=== PATIENT | female | born 1985 | race Caucasian/White ===

== ENCOUNTER 2016-07-07 10:21 | Emergency (ER) | payer BC ==
--- NOTE | 2016-07-07 10:57 | UC ---
Complaint Female HPI - HPI Summary HPI Summary: burning on urination x 5 days + right lower back , no fever, no chills, + right kidney pain - History Of Current Complaint Chief Complaint: UCGU Stated Complaint: URINARY/RIGHT SIDE PAIN Time Seen by Provider: 07/07/16 10:51 Hx Obtained From: Patient Hx Last Menstrual Period: had son 02/28/15, been irregular since, IUD as well Onset/Duration: Gradual Onset, Lasting Days - 5, Still Present Timing: Constant Severity Initially: Moderate Severity Currently: Moderate Character: Burning Aggravating Factor(s): Urination Alleviating Factor(s): Nothing Associated Signs And Symptoms: Positive: Back Pain. Negative: Fever, Vaginal Bleeding/Discharge, Vaginal Discharge, Genital Swelling, Genital Blisters, Retained Foregin Body (Specify) - Allergies/Home Medications Allergies/Adverse Reactions: Allergies Allergy/AdvReac Type Severity Reaction Status Date / Time No Known Allergies Allergy Verified 07/07/16 10:41 Home Medications: Home Medications ALPRAZolam TAB* [Xanax TAB*] 2 mg PO TID PRN 07/07/16 [History Confirmed ] Fluticasone NASAL * [Flonase *] 1 spray NASAL DAILY 07/07/16 [History Confirmed 07/07/16] traMADol TAB* [Ultram*] 50 mg PO Q6HR PRN 07/07/16 [History Confirmed 07/07/16] PMH/Surg Hx/FS Hx/Imm Hx Respiratory History Of: Reports: Asthma - Surgical History Surgical History: Yes Surgery Procedure, Year, and Place: ureter stents. - Family History Known Family History: Positive: None Negative: Diabetes - Social History Alcohol Use: None Substance Use Type: None Smoking Status (MU): Current Some Day Smoker Type: Cigarettes Amount Used/How Often: 5 per day Review of Systems Constitutional: Negative Skin: Negative Eyes: Negative ENT: Negative Respiratory: Negative Genitourinary: Dysuria, Frequency, Urgency All Other Systems Reviewed And Are Negative: Yes Physical Exam Triage Information Reviewed: Yes Appearance: Well-Appearing, No Pain Distress, Well-Nourished Vital Signs: Initial Vital Signs Temp 98.4 F 07/07/16 10:34 Pulse 76 07/07/16 10:34 Resp 15 07/07/16 10:34 Pulse Ox 99 04/25/17 10:34 Vital Signs Reviewed: Yes Eyes: Positive: Conjunctiva Clear ENT: Positive: Normal ENT inspection, Hearing grossly normal, Pharynx normal Neck: Positive: Supple, Nontender, No Lymphadenopathy Respiratory: Positive: Chest non-tender, Lungs clear, Normal breath sounds Cardiovascular: Positive: RRR, No Murmur, Pulses Normal Abdominal Exam: Normal Abdomen Description: Positive: Nontender, Soft, CVA Tenderness (R). Negative: CVA Tenderness (L) Bowel Sounds: Positive: Present Skin Exam: Normal Complaint Female Dx - Differential Dx/Diagnosis Provider Diagnoses: UTI Discharge - Discharge Plan Condition: Stable Disposition: HOME Prescriptions: Sulfamethox/Trimethoprim DS* [Bactrim DS 800/160 TAB*] 1 tab PO BID #14 tab Patient Education Materials: Urinary Tract Infection in Women (ED) Referrals: May Dan MD [Primary Care Provider] - If Needed
== END 2016-07-07 11:11 | disposition home or self-care (01) ==
LOC: UCCORT 10:21
DX: N39.0 Urinary tract infection, site not specified (principal); J45.909 Unspecified asthma, uncomplicated; Z72.0 Tobacco use
CPT/HCPCS: 87086; 99212; G0463

== ENCOUNTER 2018-02-17 07:57 | Emergency (ER) | payer BC ==
--- OUTSIDE RECORDS SUMMARY | 2018-02-17 08:07 | XMS REPORT | Continuity of Care Document ---
:1985 External Reference #:[id number] Author Name Macrina Young Care Team Providers Name Role Phone May Dan MD Primary Care Physician Unavailable Payers Type Date Identification Numbers Payment Provider Subscriber Effective: Policy Number: [id number] [employer] Abigail Maravilla 2017 PayID: [id number] [address] [address] ALEJANDRINA Shelley [address] Expires: 2017 Policy Number: [id number] [employer] Abigail Maravilla Group Number: 17 [address] [address] PayID: [id number] ALEJANDRINA Shelley [id number] Advance Directives Description No Information Available Problems Date Description Provider Status Onset: 12/16/2010 Extrinsic asthma without status May Dan M.D. Active asthmaticus Onset: 12/16/2010 Headache May Dan M.D. Active Onset: 12/16/2010 Urinary tract infectious disease May Dan M.D. Active Onset: 12/16/2010 Ex-smoker May Dan M.D. Active Family History Date Family Member(s) Problem(s) Comments General Non Contributory General Kidney Stones General Anxiety Father Hyperlipidemia Father Hypertension Social History Type Date Description Comments Sex Unknown Marital Status single Tobacco Use Start: Unknown Current Cigarette Smoker ETOH Use Occasionally consumes alcohol Tobacco Use Start: Unknown Patient is a current smoker, smokes every day Smoking Status Reviewed: 10/20/17 Patient is a current smoker, smokes every day Seat Belt/Car Seat Always uses a seat belt Allergies, Adverse Reactions, Alerts Date Description Reaction Status Severity Comments 12/01/2010 NKDA Active 03/02/2005 Nka Active 02/16/2006 enviromental Active Medications Medication Date Status Form Strength Qnty SIG Indications Ordering Provider Xanax 02/07/ Active Tablets 1mg 240ta 2 by mouth F41.1 May Maria bs every 6 Gauss, hours as M.D. needed Tramadol HCL 08/26/ Active Tablets 50mg 240ta 2 by mouth F41.1 May 2016 bs every 6 Gauss, hours as M.D. needed pain Ventolin HFA 06/10/ Active Aerosol 108(90Bas 108un inhale two May 2011 e) its puffs by Ni, mcg/Act mouth four M.D. times a day and as needed Albuterol 05/17/ Active Solution 0.083% 100un qid prn as May Inhalation Unit 2006 its Directed Larryuss, Dose M.D. Clonidine HCL / Active Tablets 0.1mg TK 1 T PO Unknown 0000 qid PRF Anxiety Amoxicillin 12/23/ Hx Tablets 875mg 14tab 1 by mouth J20.9 May 2018 - s twice a day Ni, 02/07/ M.D. 2018 Cheratussin ac 12/23/ Hx Syrup 100-10mg/ 118ml 5 ml every J20.9 May 2018 - 5ML 4 hours as Ni, 02/07/ needed M.D. 2018 Azithromycin 12/13/ Hx Tablets 250mg 6tabs 2 by mouth J20.9 May 2018 - today, 1 by Ni, 12/23/ mouth day 2 M.D. 2017 thru 5 Xanax 12/13/ Hx Tablets 1mg 120ta 1 by mouth F41.1 May 2018 - bs 4x daily as Ni, 02/07/ needed for M.D. 2018 anxiety Work Note 07/07/ Hx may return F43.23 May 2018 - to work Ni, 12/13/ 10/06/2017 M.D. 2018 Alprazolam XR 06/22/ Hx Tablets ER 2mg 120ta 2 tab by F41.1 May 2018 - 24HR bs mouth twice Ni, 09/28/ daily M.D. 2018 Venlafaxine HCL 04/28/ Hx Tablets ER 75mg 30tab 1 by mouth F41.1 May ER 2018 - 24HR s every day Ni, 06/22/ M.D. 2018 Oseltamivir 02/24/ Hx Capsules 75mg 20cap 1 by mouth J09.x2 May Phosphate 2017 - s twice daily Ni, 07/22/ for next 10 M.D. 2018 days Azithromycin 02/24/ Hx Tablets 250mg 6tabs 2 by mouth J09.x2 May 2017 - today, 1 by Gauss, 03/29/ mouth day 2 M.D. 2017 thru 5 Work Note 02/24/ Hx Excused J09.x2 May 2016 - from work Gauss, 07/07/ until 03/01 M.D. 2018 Cipro 02/02/ Hx Tablets 250mg 14tab 1 by mouth N39.0 May 2016 - s twice a day Gauss, 02/24/ M.D. 2016 Alprazolam XR 01/05/ Hx Tablets ER 2mg 60tab 2 tab by F41.1 May 2017 - 24HR s mouth daily Gauss, 06/22/ M.D. 2017 Alprazolam 12/09/ Hx Tablets 2mg 120ta 1 by mouth F41.1 May 2017 - Dispers bs 4 times Gauss, 12/09/ daily M.D. 2016 Alprazolam 12/09/ Hx Tablets 1mg 300ta 2 /2 by F41.1 May 2016 - bs mouth 4 Gauss, 09/28/ times a day M.D. 2017 Alprazolam XR 12/08/ Hx Tablets ER 2mg 120ta 1 tab by F41.1 May 2016 - 24HR bs mouth four Gauss, 12/09/ times a day M.D. 2017 as needed Ketoconazole 08/26/ Hx Cream 2% 60gm apply twice B35.9 May 2016 - a day Gauss, 11/10/ M.D. 2016 Alprazolam XR 01/06/ Hx Tablets ER 2mg 1 tablet F41.1 May 2016 - 24HR every 8 Gauss, 01/06/ hours as M.D. 2016 needed Alprazolam 10/25/ Hx Tablets 1mg 180ta 2 by mouth F41.1 May 2015 - Dispers bs three times Gauss, 01/06/ a day M.D. 2015 Alprazolam 10/25/ Hx Tablets 1mg 180ta 2 by mouth F41.1 May 2016 - bs three times Gauss, 12/08/ a day M.D. 2017 Cipro 11/11/ Hx Tablets 250mg 10tab 1 by mouth N39.0 May 2015 - s twice a day Gauss, 01/06/ M.D. 2016 Azithromycin 09/11/ Hx Tablets 250mg 6tabs 2 by mouth J01.90 May 2015, 1 by Ni, 11/11/ mouth day 2 M.D. 2016 thru 5 Tramadol HCL 04/24/ Hx Tablets 50mg 120ta 1 by mouth F41.1 May 2015 - bs every 6 Larryuss, 08/26/ hours as M.D. 2017 needed pain Alprazolam 09/24/ Hx Tablets 1mg 120ta 1 by mouth F41.1 May 2014 - bs 4 times Larryuss, 01/06/ daily as M.D. 2016 needed Alprazolam 09/06/ Hx Tablets 0.5mg 30tab 1 by mouth 300.02 May 2014 - s before Ni, 09/24/ bedtime as M.D. 2014 neded Alprazolam 04/03/ Hx Tablets 1mg 120ta 1 by mouth 300.02 May 2014 - bs 4 times a Larryuss, 09/06/ day M.D. 2014 Pyridium 02/21/ Hx Tablets 200mg 30tab 1 three 599.00 May 2013 - s times a day Ni, 09/06/ as needed M.D. 2014 bladder pain Azithromycin 12/06/ Hx Tablets 250mg 6tabs 2 by mouth 466.0 May 2013, 1 by Ni, 09/06/ mouth day 2 M.D. 2014 thru 5 Azithromycin 08/17/ Hx Tablets 250mg 6tabs 2 po today, 460.00 May 2013 - po day 2 Ni, 10/17/ thru 5 M.D. 2013 Famotidine 08/14/ Hx Tablets 40mg 90tab 1 po qd 530.81 May 2013 - s Ni, 11/10/ M.D. 2016 Buspirone HCL 07/13/ Hx Tablets 15mg 180ta 1 po bid F41.1 May 2013 - bs Ni, 11/10/ M.D. 2017 Ciprofloxacin 04/13/ Hx Tablets 500mg 20tab 1 by mouth 382.90 May HCL 2013 - s twice a day Ni, 09/06/ M.D. 2014 Cortisporin-TC 04/13/ Hx Suspension 3.3-3-10- 5ml 1 qtt ad 382.90 May 2013 - 0.5mg/ml qid Ni, M.D. 2013 Buspirone HCL 04/13/ Hx Tablets 7.5mg 90tab 1 po tid 300.02 May 2013 - s Ni, M.D. 2013 Amoxicillin/Cla 03/28/ Hx Tablets 500-125mg 14tab 1 po bid 382.90 May vulanate 2013 - s Ni, Potassium M.D. 2013 Diflucan 03/28/ Hx Tablets 150mg 3tabs 1 po qd 382.90 May 2013 - Ni, M.D. 2013 Alprazolam 03/01/ Hx Tablets 1mg 120ta 1 by mouth 300.02 May 2012 - bs 4 times a Ni, 04/03/ day M.D. 2014 SMZ-TMP DS 02/07/ Hx Tablets 800-160mg 14tab 1 po bid 599.0 May 2012 - s Ni, M.D. 2012 Azithromycin 12/07/ Hx Tablets 250mg 6tabs 2 po today, 466.0 May 2012 po day 2 Ni, 01/09/ thru 5 M.D. 2012 Advair Diskus 12/07/ Hx Aerosol 250-50mcg 3unit 1 puff bid 493.00 May 2012 - /Dose s Ni, M.D. 2017 Robitussin With 12/07/ Hx 4Oz 1 tsp po q 466.0 May Codeine 2012 - 4 hours prn Ni, 01/09/ cough M.D. 2012 Alprazolam 10/25/ Hx Tablets 0.5mg 90tab 1 po tid 300.02 May 2012 - s prn Larryuss, M.D. 2012 Azithromycin 08/22/ Hx Tablets 250mg 6tabs 2 po today, 382.90 May 2012 po day 2 Gauss, 10/05/ thru 5 M.D. 2012 Azithromycin 02/22/ Hx Tablets 250mg 6tabs 2 po today, 465.2011 po day 2 Gauss, 05/16/ thru 5 M.D. 2013 Robitussin With 02/22/ Hx Liquid 8Oz 1-2 465.8 May Codeine 2011 - teaspoon po Gauss, 05/16/ q 4-6 hrs M.D. 2012 for cough Work Note 02/22/ Hx may return 465.2011 - to work Gauss, 05/16/ 02/29/2012 M.D. 2012 Ciprofloxacin 12/07/ Hx Tablets 500mg 14tab 1 po bid 599.0 May HCL 2011 - s Gauss, M.D. 2011 Ciprofloxacin 04/13/ Hx Tablets 250mg 14tab 1 po bid 599.0 May HCL 2011 - Gauss, 12/07/ M.D. 2011 Alprazolam 01/27/ Hx Tablets 0.25mg 90tab 1 po tid 300.02 May 2010 - prn Gauss, M.D. 2012 Pyridium 12/16/ Hx Tablets 200mg 30tab 1 tid prn 599.0 May 2010 - bladder Gauss, 01/27/ pain M.D. 2010 Ciprofloxacin 12/16/ Hx Tablets 250mg 30tab 1 po bid 599.0 May HCL 2010 - Gauss, 01/27/ M.D. 2010 Proair HFA 07/14/ Hx Aerosol 108(90Bas 3unit 2 puffs 4 May 2010 - e) mcg/ac s x daily Gauss, M.D. 2011 Chantix 11/20/ Hx Tablets 0.5mg 60tab 1 po bid V15.82 May 2009 - s Gauss, M.D. 2010 Betamethasone 11/20/ Hx Cream 0.05% 60rm apply to 705.81 May Dipropionate 2009 - affected Gauss, 01/09/ area bid M.D. 2012 Tramadol HCL 08/05/ Hx Tablets 50mg 120ta 1 by mouth 346.00 May 2009 - bs every 6 Gauss, 09/06/ hours as M.D. 2014 needed pain Azithromycin 05/21/ Hx Tablets 250mg 5tabs 2 po today, 473.90 May 2009 - po day 2 Gauss, 11/20/ thru 5 M.D. 2009 Proair HFA 05/21/ Hx Aerosol 108(90Bas 1unit 2 puffs 4 473.90 May 2009 - e) mcg/ac s x daily Gauss, 11/20/ M.D. 2009 Tramadol HCL 05/21/ Hx Tablets 50mg 100ta 1 po q 6 784.0 May 2009 - bs hours prn Ni, 11/20/ pain M.D. 2010 Ventolin HFA 07/23/ Hx Aerosol 108mcg/Ac 2unit 2 puff qid 473.90 May 2009 - t s prn Ni, 05/21/ M.D. 2009 Proventil HFA 07/04/ Hx Aerosol 108mcg/Ac 3unit 2 puffs qid May 2009 - t s prn Ni, 07/23/ M.D. 2008 Zithromax Z-Khoa 01/19/ Hx Tablets 250mg 1Pak 1 po qd Vandana 2008 - MD Asa 2007 Zithromax 01/19/ Hx Tablets 250mg 6tabs 2 po day 1, Vandana 2007 - po qd x MD Asa 05/21/ days 2-5 2009 Metrogel-Vagina 11/22/ Hx Gel 0.75% 60GMS 1 May wayne 2008 - Applicator Ni, 01/19/ Full Per M.D. 2007 Vagina At hs Diflucan 09/28/ Hx Tablets 150mg 7tabs 1 PO qd 112.9 May 2008 - Ni, 11/14/ M.D. 2008 Diflucan 09/26/ Hx Tablets 100mg 7tabs 1 qd x 7 112.9 May 2007 - days Ni, 09/28/ M.D. 2007 Chantix 03/22/ Hx 2unit PO as V15.82 May Starter Pack 2008 - s Directed Ni, 09/26/ M.D. 2007 Zithromax 06/16/ Hx Tablets 500mg 5tabs 1 po qd 473.90 May 2006 - for five Ni, 03/22/ days M.D. 2008 Loratadine 06/16/ Hx Tablets 10mg 30tab 1 PO qd prn 473.90 May 2007 - s Ni, 05/21/ M.D. 2010 Mucinex 06/16/ Hx Tablets 600mg 30tab 1 po bid 473.90 May 2007 - s prn Ni, 03/22/ M.D. 2008 Flonase NS 06/16/ Hx 3unit 1 spray q May 2007 - s nare q day Ni, M.D. 2008 Nuvaring 05/11/ Hx Insert 0.015mg/D 4unit 1 q week V25.02 May 2006 - ay;0.12mg s Ni, 05/21/ /D M.D. 2009 Albuterol 02/16/ Hx Aerosol 90mcg/Dos 6unit 2 puff qid May Inhalation 2005 - e s Ni, M.D. 2008 Elocon 02/16/ Hx Cream 0.1% 15uni Apply To 705.81 May 2005 - ts Skin as Ni, M.D. 2009 Lamisil 02/16/ Hx Tablets 250mg 30tab 1 po qday 110.1 May 2005 - s Ni, M.D. 2009 Advair Disc 02/16/ Hx Inhaler 250/50 1unit 1 puff bid 493.00 May 2005 - s Ni, M.D. 2012 Levaquin 03/02/ Hx Tablets 500mg 3tabs 599.0 May 2004 - Ni, M.D. 2006 Ibuprofen 03/02/ Hx Tablets 600mg 120ta 1 PO bid 599.0 May 2004 - bs prn Ni, M.D. 2009 Ortho-Evra 01/22/ Hx Patches 0.75mg;6m 12uni apply once May 2004 - g;20mcg;1 ts A week Ni, M.D. 2006 Albuterol 01/22/ Hx Aerosol 90mcg/Dos 2unit 2 puff qid May Inhalation 2004 - e s and prn Ni, M.D. 2010 Ortho 01/19/ Hx Tablets 0.035mg;0 28tab One PO qd May Tri-Cyclen 2004 - .18mg;0.0 s Ni, M.DBahman 2004 Bupropion HCL / Hx Tablets ER 150mg TK 1 T PO Unknown ER (XL) 0000 - 24HR qam 201709/28/2017 Escitalopram / Hx Tablets 20mg Unknown Oxalate 0000 - 2017 Diazepam / Hx Tablets 10mg Unknown 0000 - 2017 Quetiapine / Hx Tablets ER 150mg one tablet Unknown Fumarate ER 0000 - 24HR one time a 2017 Immunizations CPT Code Status Date Vaccine Lot # [id number] Given 10/16/2004 Tetanus And Diptheria Toxiods [id number] Given 10/16/2004 Tetanus And Diptheria Toxiods Vital Signs Date Vital Result Comment 02/07/2018 3:36pm BP Systolic 138 mmHg BP Diastolic 78 mmHg Heart Rate 80 /min Height 61 inches 5'1" Weight 125.00 lb BMI (Body Mass Index) 23.6 kg/m2 O2 % BldC Oximetry 98 % 01/12/2018 2:42pm BP Systolic 140 mmHg BP Diastolic 70 mmHg Height 61 inches 5'1" 12/23/2017 3:39pm BP Systolic 120 mmHg BP Diastolic 74 mmHg Height 61 inches 5'1" Weight 122.00 lb BMI (Body Mass Index) 23.0 kg/m2 12/13/2017 3:36pm BP Systolic 110 mmHg BP Diastolic 70 mmHg Heart Rate 100 /min Body Temperature 98.2 F Respiratory Rate 18 /min Height 61 inches 5'1" Weight 122.00 lb BMI (Body Mass Index) 23.0 kg/m2 O2 % BldC Oximetry 98 % 10/20/2017 1:55pm BP Systolic 98 mmHg BP Diastolic 56 mmHg Height 61 inches 5'1" Weight 114.00 lb BMI (Body Mass Index) 21.5 kg/m2 09/28/2017 3:12pm BP Systolic 110 mmHg BP Diastolic 70 mmHg Heart Rate 70 /min Respiratory Rate 18 /min Height 61 inches 5'1" Weight 121.00 lb BMI (Body Mass Index) 22.9 kg/m2 O2 % BldC Oximetry 95 % 07/22/2017 2:54pm BP Systolic 120 mmHg BP Diastolic 64 mmHg Height 61 inches 5'1" Weight 121.00 lb BMI (Body Mass Index) 22.9 kg/m2 07/20/2017 1:42pm BP Systolic 130 mmHg BP Diastolic 68 mmHg Heart Rate 80 /min Respiratory Rate 18 /min Height 61 inches 5'1" Weight 121.00 lb BMI (Body Mass Index) 22.9 kg/m2 O2 % BldC Oximetry 97 % 07/07/2017 11:37am BP Systolic 118 mmHg BP Diastolic 66 mmHg Height 61 inches 5'1" Weight 121.00 lb BMI (Body Mass Index) 22.9 kg/m2 06/22/2017 3:50pm BP Systolic 140 mmHg BP Diastolic 90 mmHg Heart Rate 72 /min Respiratory Rate 18 /min O2 % BldC Oximetry 96 % 04/28/2017 11:33am BP Systolic 108 mmHg BP Diastolic 72 mmHg Height 61 inches 5'1" Weight 121.00 lb BMI (Body Mass Index) 22.9 kg/m2 03/29/2017 2:26pm BP Systolic 118 mmHg BP Diastolic 70 mmHg 02/24/2017 2:46pm BP Systolic 110 mmHg BP Diastolic 60 mmHg Heart Rate 105 /min Body Temperature 98.3 F Respiratory Rate 18 /min 02/02/2017 2:54pm BP Systolic 104 mmHg BP Diastolic 60 mmHg Body Temperature 95.6 F 01/05/2017 11:54am BP Systolic 116 mmHg BP Diastolic 70 mmHg 12/08/2016 3:05pm BP Systolic 124 mmHg BP Diastolic 60 mmHg 11/10/2016 11:31am BP Systolic 124 mmHg BP Diastolic 70 mmHg 10/13/2016 3:27pm BP Systolic 112 mmHg BP Diastolic 70 mmHg 09/22/2016 2:18pm BP Systolic 120 mmHg BP Diastolic 66 mmHg 08/26/2016 3:40pm BP Systolic 118 mmHg BP Diastolic 70 mmHg 07/22/2016 11:54am BP Systolic 122 mmHg BP Diastolic 80 mmHg 05/25/2016 2:24pm BP Systolic 122 mmHg BP Diastolic 70 mmHg 04/28/2016 1:44pm BP Systolic 120 mmHg BP Diastolic 80 mmHg Weight 125.00 lb 04/01/2016 3:32pm BP Systolic 118 mmHg BP Diastolic 78 mmHg 03/03/2016 1:35pm BP Systolic 110 mmHg BP Diastolic 70 mmHg 01/07/2016 1:59pm BP Systolic 122 mmHg BP Diastolic 70 mmHg 12/10/2015 3:34pm BP Systolic 120 mmHg BP Diastolic 80 mmHg 11/12/2015 2:28pm BP Systolic 114 mmHg BP Diastolic 60 mmHg 10/16/2015 2:58pm BP Systolic 110 mmHg BP Diastolic 62 mmHg 09/12/2015 3:15pm BP Systolic 110 mmHg BP Diastolic 60 mmHg Body Temperature 97.7 F 07/09/2015 2:05pm BP Systolic 118 mmHg BP Diastolic 70 mmHg 02/11/2015 2:37pm BP Systolic 114 mmHg BP Diastolic 70 mmHg 01/09/2015 11:28am BP Systolic 112 mmHg BP Diastolic 62 mmHg 12/11/2014 10:52am BP Systolic 122 mmHg BP Diastolic 80 mmHg 10/17/2014 11:34am BP Systolic 120 mmHg BP Diastolic 80 mmHg 09/24/2014 1:37pm BP Systolic 108 mmHg BP Diastolic 60 mmHg 09/06/2014 12:36pm BP Systolic 124 mmHg BP Diastolic 60 mmHg 06/28/2014 10:05am BP Systolic 112 mmHg BP Diastolic 60 mmHg 05/30/2014 1:41pm BP Systolic 132 mmHg BP Diastolic 80 mmHg 05/09/2014 10:54am BP Systolic 104 mmHg BP Diastolic 60 mmHg Body Temperature 98.5 F 04/03/2014 3:06pm BP Systolic 118 mmHg BP Diastolic 68 mmHg 03/05/2014 3:03pm BP Systolic 122 mmHg BP Diastolic 70 mmHg 02/05/2014 2:20pm BP Systolic 118 mmHg BP Diastolic 70 mmHg 01/04/2014 1:21pm BP Systolic 120 mmHg BP Diastolic 72 mmHg 12/06/2013 1:50pm BP Systolic 110 mmHg BP Diastolic 60 mmHg Body Temperature 98.2 F 10/17/2013 3:37pm BP Systolic 102 mmHg BP Diastolic 60 mmHg 10/13/2013 11:56am BP Systolic 110 mmHg BP Diastolic 60 mmHg 09/11/2013 3:35pm BP Systolic 112 mmHg BP Diastolic 60 mmHg 08/17/2013 3:06pm BP Systolic 112 mmHg BP Diastolic 70 mmHg Body Temperature 98.0 F 08/14/2013 3:39pm BP Systolic 122 mmHg BP Diastolic 70 mmHg 07/13/2013 3:44pm BP Systolic 114 mmHg BP Diastolic 70 mmHg 07/06/2013 1:50pm BP Systolic 112 mmHg BP Diastolic 70 mmHg 06/05/2013 1:48pm BP Systolic 120 mmHg BP Diastolic 76 mmHg 04/13/2013 11:51am BP Systolic 122 mmHg BP Diastolic 78 mmHg Body Temperature 98.7 F 03/28/2013 12:11pm BP Systolic 114 mmHg BP Diastolic 68 mmHg Body Temperature 99.0 F 03/01/2013 11:04am BP Systolic 132 mmHg BP Diastolic 80 mmHg 02/07/2013 11:41am BP Systolic 112 mmHg BP Diastolic 74 mmHg Body Temperature 97.8 F 01/10/2013 10:50am BP Systolic 114 mmHg BP Diastolic 70 mmHg 12/07/2012 1:36pm BP Systolic 108 mmHg BP Diastolic 66 mmHg Body Temperature 98.4 F 10/25/2012 1:53pm BP Systolic 128 mmHg BP Diastolic 62 mmHg 10/05/2012 1:29pm BP Systolic 130 mmHg BP Diastolic 62 mmHg 08/22/2012 3:37pm BP Systolic 100 mmHg BP Diastolic 60 mmHg Body Temperature 98.4 F 05/16/2012 2:11pm BP Systolic 120 mmHg BP Diastolic 80 mmHg Height 61 inches 5'1" Weight 114.00 lb BMI (Body Mass Index) 21.5 kg/m2 02/23/2012 2:10pm Body Temperature 100.9 F Height 61 inches 5'1" 12/08/2011 2:38pm BP Systolic 130 mmHg BP Diastolic 72 mmHg Height 61 inches 5'1" Weight 117.00 lb BMI (Body Mass Index) 22.1 kg/m2 10/20/2011 3:20pm BP Systolic 150 mmHg BP Diastolic 70 mmHg 04/13/2011 11:01am BP Systolic 104 mmHg BP Diastolic 60 mmHg Body Temperature 97.6 F 01/27/2011 2:59pm BP Systolic 120 mmHg BP Diastolic 68 mmHg 12/16/2010 1:37pm BP Systolic 120 mmHg BP Diastolic 68 mmHg Height 61 inches 5'1" Weight 109.00 lb BMI (Body Mass Index) 20.6 kg/m2 11/20/2009 1:46pm BP Systolic 110 mmHg BP Diastolic 50 mmHg Weight 107.00 lb 05/21/2009 2:51pm BP Systolic 116 mmHg BP Diastolic 62 mmHg Body Temperature 99.5 F Weight 109.00 lb 01/20/2008 12:07pm BP Systolic 112 mmHg BP Diastolic 60 mmHg Height 61 inches 5'1" Weight 120.00 lb BMI (Body Mass Index) 22.7 kg/m2 11/15/2007 4:06pm BP Systolic 126 mmHg BP Diastolic 64 mmHg Height 61 inches 5'1" Weight 118.00 lb BMI (Body Mass Index) 22.3 kg/m2 09/27/2007 1:56pm BP Systolic 118 mmHg BP Diastolic 68 mmHg Height 61 inches 5'1" 03/22/2007 10:48am BP Systolic 122 mmHg BP Diastolic 60 mmHg Height 61 inches 5'1" Weight 121.00 lb BMI (Body Mass Index) 22.9 kg/m2 06/16/2006 11:31am Heart Rate 77 /min Body Temperature 98.1 F Height 61 inches 5'1" Weight 114.00 lb BMI (Body Mass Index) 21.5 kg/m2 O2 % BldC Oximetry 99 % 05/11/2006 11:28am Height 61 inches 5'1" 05/11/2006 10:59am BP Systolic 116 mmHg BP Diastolic 60 mmHg Height 61 inches 5'1" Weight 112.00 lb BMI (Body Mass Index) 21.2 kg/m2 02/16/2006 3:43pm Heart Rate 86 /min Body Temperature 98.6 F Weight 119.00 lb O2 % BldC Oximetry 98 % 03/02/2005 2:55pm BP Systolic 100 mmHg BP Diastolic 60 mmHg Body Temperature 98.1 F Results Test Date Facility Test Result H/L Range Note Escherichia Coli 07/05/2017 [facility] Nitrofurantoin <=[address] [place] [address] [phone] Trimethoprim/Sulfamethoxazole <=20 Ampicillin 8 Cefazolin <=4 Ampicillin/Sulbactam <=2 Ciprofloxacin <=0.25 Piperacillin/Tazobactam <=4 Ceftazidime <=1 Ceftriaxone <=1 Cefepime <=1 Levofloxacin <=0.12 Imipenem <=0.25 Gentamicin <=1 Tobramycin <=1 Urine Culture 07/05/2017 [facility] Urine Culture ESCHERICHIA COLI [address] [place] [address] [phone] Quantity > 100,000 CFU/mL 3 Urine Culture URETHRAL BRANDON Quantity 10,000 - 50,000 <SEE NOTE> 4 Culture If 07/05/2017 [facility] Culture If CULTURE TO 5 Indicated Comment [address] Indicated FOLLO <[place] [address] Comment NOTE> [phone] Source: URINE, CLEAN CAT <SEE NOTE> 6 Comprehensive 07/05/2017 [facility] Glucose 103 mg/ dL 74-106 Metabolic Panel [address] [place] [address] [phone] BUN 16 mg/dL 7-18 Creatinine 0.7 mg/dL 0.6-1.3 Glom Filtration Rate, Estimate >60 mL/min >60 If >60 mL/min >60 7 BUN/Creat 22.8 ratio Sodium 141 mmol/L 136-145 Potassium 3.8 mmol/L 3.5-5.1 Chloride 107 mmol/L 98-107 Carbon Dioxide 22 mmol/L 21-32 Anion Gap 12 mEq/L 8-16 Calcium 9.1 mg/dL 8.5-10.1 Total Protein 8.1 g/dL 6.4-8.2 Albumin 4.4 g/dL 3.4-5.0 Globulin 3.7 g/dL 1.9-4.3 Alb/Glob 1.2 ratio Bilirubin,Total 0.8 mg/dL 0.2-1.0 Sgot/Ast 18 U/L 15-37 SGPT/Alt 37 U/L 12-78 Alkaline Phosphatase 54 U/L 45-117 Laboratory test 07/05/2017 [facility] Thyroid Stim 0.65 uIU/mL 0.30-4.[address] [place] [address] [phone] CBS W/Automated 07/05/2017 [facility] White Blood 11.2 K/uL High 3.1-10.[address] [place] [address] [phone] Red Blood Count 4.70 M/uL 3.90-5.40 Hemoglobin 14.9 gm/dL 11.6-15.8 Hematocrit 43.0 % 36.0-46.1 Mean Cell Volume 91.5 fl 80.9-99.0 Mean Corpuscular HGB 31.7 pg 25.9-32.7 Mean Corpuscular HGB Conc 34.7 g/dL High 30.8-34.3 Platelet Count 406 K/uL High 155-360 Red Cell Distri Width SD 41.2 fl 3-47 Red Cell Distri Width %CV 12.5 % 11.7-14.4 Mean Platelet Volume 9.4 fL 8.9-12.4 Neut% 73.5 % High 40.4-72.8 Lymph % 19.9 % Low 20.0-42.0 [place] % 5.6 % 4.3-13.2 Eo% 0.8 % 0.0-6.6 Bas% 0.2 % 0.0-1.1 Neut# 8.21 K/uL High 1.8-7.0 Lymph # 2.22 K/uL 1.0-4.0 [place] # 0.62 K/uL 0.3-0.9 Eos # 0.09 K/uL 0.0-0.5 Baso # 0.02 K/uL 0.0-0.1 Urinalysis With 07/05/2017 [facility] Urine Color YELLOW Yellow Microscopic [address] [place], [place] [id number] [phone] Urine Clarity CLOUDY Clear Urine Glucose - Dipstick NEGATIVE mg/dL Negative Urine Bilirubin - Dipstick NEGATIVE Negative Urine Ketone TRACE mg/dL High Negative Urine Specific [place] 1.025 1.010-1.030 Urine Blood LARGE Negative Urine PH 6.0 Low 6.5-7.5 Urine Protein - Dipstick 100 mg/dL High Negative Urine Urobilinogen - Dipstick 0.2 E.U./dL 0.2-1.0 Urine Nitrite - Dipstick POSITIVE Negative Urine Leuk Esterase MODERATE Negative Urine RBC 2-5 rbc/hpf 0-2 Urine WBC TNTC wbc/hpf High 0-7 Urine Epithelial Cells VERY FEW /lpf None Seen Urine Bacteria MANY None Seen Source: URINE, CLEAN CAT <SEE NOTE> 8 Urine HCG 07/05/2017 [facility] Urine HCG NEGATIVE Negative 9 (Qualitative) [address] (Qualitative) [place], [place] [id number] [phone] Source: URINE, CLEAN CAT <SEE NOTE> 10 Differential-WBC 07/05/2017 [facility] Total Cells 100 #CELLS Confirm [address] Counted [place], [place] [id number] [phone] Neutrophils% 76 % High 33-73 Lymph% 13 % Low 20-42 Atypical Lymph% 5 % 0-7 Monocyte% 6 % 0-10 Platelet Estimate SLIGHT INCREASE RBC Morphology NORMAL Slide Review 07/05/2017 [facility] Slide Review DIFF ORDERED [address] [place] [address] [phone] Culture,Urine,V 02/02/2017 [facility] URINE-CLEAN CATC [address] <SEE NOTE> [place] [address] [phone] Final Report SEE NOTE 12 CBC 07/10/2016 [facility] White Blood Count 5.6 K/uL 3.1-10.[address] [place] [address] [phone] Red Blood Count 3.03 M/uL Low 3.90-5.40 Hemoglobin 9.6 gm/dL Low 11.6-15.8 Hematocrit 28.8 % Low 36.0-46.1 Mean Cell Volume 95.0 fl 80.9-99.0 Mean Corpuscular HGB 31.7 pg 25.9-32.7 Mean Corpuscular HGB Conc 33.3 g/dL 30.8-34.3 Platelet Count 239 K/uL 150-400 Red Cell Distri Width %CV 12.3 % 11.7-14.4 Mean Platelet Volume 10.2 fL 8.9-12.4 Comprehensive 07/10/2016 [facility] Glucose 135 mg/ dL High 74-106 Metabolic Panel [address] [place] [address] [phone] BUN 4 mg/dL Low 7-18 Creatinine 0.5 mg/dL Low 0.6-1.3 Glom Filtration Rate, Estimate >60 mL/min >60 If >60 mL/min >60 14 BUN/Creat 8.0 ratio Sodium 144 mmol/L 136-145 Potassium 3.5 mmol/L 3.5-5.1 Chloride 113 mmol/L High 98-107 Carbon Dioxide 25 mmol/L 21-32 Anion Gap 6 mEq/L Low 8-16 Calcium 7.2 mg/dL Low 8.5-10.1 Total Protein 5.2 g/dL Low 6.4-8.2 Albumin 2.5 g/dL Low 3.4-5.0 Globulin 2.7 g/dL 1.9-4.3 Alb/Glob 0.9 ratio Bilirubin,Total 0.2 mg/dL 0.2-1.0 Sgot/Ast 39 U/L High 15-37 SGPT/Alt 66 U/L 12-78 Alkaline Phosphatase 67 U/L 45-117 Laboratory test 07/10/2016 [facility] Magnesium 2.4 mg/dL 1.8-2.[address] [place] [address] [phone] CBS W/Automated 07/09/2016 [facility] White Blood 6.8 K/uL 3.1-10.[address] [place] [address] [phone] Red Blood Count 3.33 M/uL Low 3.90-5.40 Hemoglobin 10.5 gm/dL Low 11.6-15.8 Hematocrit 31.4 % Low 36.0-46.1 Mean Cell Volume 94.3 fl 80.9-99.0 Mean Corpuscular HGB 31.5 pg 25.9-32.7 Mean Corpuscular HGB Conc 33.4 g/dL 30.8-34.3 Platelet Count 246 K/uL 150-400 Red Cell Distri Width SD 40.6 fl 3-47 Red Cell Distri Width %CV 12.3 % 11.7-14.4 Mean Platelet Volume 9.9 fL 8.9-12.4 Neut% 64.7 % 40.4-72.8 Lymph % 23.3 % 20.0-42.0 [place] % 10.0 % 4.3-13.2 Eo% 1.9 % 0.0-6.6 Bas% 0.1 % 0.0-1.1 Neut# 4.42 K/uL 1.8-7.0 Lymph # 1.59 K/uL 1.0-4.0 [place] # 0.68 K/uL 0.3-0.9 Eos # 0.13 K/uL 0.0-0.5 Baso # 0.01 K/uL 0.0-0.1 Basic Metabolic 07/09/2016 [facility] Glucose 110 mg/ dL High 74-[address] [place], [place] [id number] [phone] BUN 8 mg/dL 7-18 Creatinine 0.7 mg/dL 0.6-1.3 Glom Filtration Rate, Estimate >60 mL/min >60 If >60 mL/min >60 15 BUN/Creat 11.4 ratio Sodium 140 mmol/L 136-145 Potassium 3.6 mmol/L 3.5-5.1 Chloride 111 mmol/L High 98-107 Carbon Dioxide 23 mmol/L 21-32 Anion Gap 6 mEq/L Low 8-16 Calcium 7.1 mg/dL Low 8.5-10.1 Laboratory test 07/09/2016 [facility] Magnesium 1.8 mg/dL 1.8-2.[address] [place] [id number] [phone] Blood Culture 07/08/2016 [facility] Blood Culture NO GROWTH: [address] Aerobic FINAL <[place] [address] NOTE> [phone] Blood Culture Anaerobic NO GROWTH: FINAL <SEE NOTE> 17 Urine Culture 07/08/2016 [facility] Urine Culture MIXED URETHRAL F [address] <SEE NOTE> [place] [id number] [phone] Quantity > 100,000 CFU/mL 19 Comprehensive 07/08/2016 [facility] Glucose 112 mg/ dL High 74-106 Metabolic Panel [address] [place] [id number] [phone] BUN 10 mg/dL 7-18 Creatinine 0.8 mg/dL 0.6-1.3 Glom Filtration Rate, Estimate >60 mL/min >60 If >60 mL/min >60 20 BUN/Creat 12.5 ratio Sodium 136 mmol/L 136-145 Potassium 3.9 mmol/L 3.5-5.1 Chloride 105 mmol/L 98-107 Carbon Dioxide 24 mmol/L 21-32 Anion Gap 7 mEq/L Low 8-16 Calcium 8.8 mg/dL 8.5-10.1 Total Protein 8.0 g/dL 6.4-8.2 Albumin 3.8 g/dL 3.4-5.0 Globulin 4.2 g/dL 1.9-4.3 Alb/Glob 0.9 ratio Bilirubin,Total 1.1 mg/dL High 0.2-1.0 Sgot/Ast 38 U/L High 15-37 SGPT/Alt 79 U/L High 12-78 Alkaline Phosphatase 80 U/L 45-117 Laboratory test 07/08/2016 [facility] Lactic Acid 0.7 mmol/L 0.4-1.9 [address] [place] [id number] [phone] Blood Culture 07/08/2016 [facility] Blood NO GROWTH: 22, [address] Culture FINAL <[place] [address] Aerobic NOTE> [phone] Blood Culture Anaerobic NO GROWTH: FINAL <SEE NOTE> 24 Laboratory test 07/07/2016 [facility] Urine SEE RESULT 25, [address] [place] [address] [phone] Urinalysis With 07/07/2016 [facility] Urine Color YELLOW Yellow [address] [place] [address] [phone] Urine Clarity CLEAR Clear Urine Glucose - Dipstick NEGATIVE mg/dL Negative Urine Bilirubin - Dipstick NEGATIVE Negative Urine Ketone NEGATIVE mg/dL Negative Urine Specific [place] 1.010 1.010-1.030 Urine Blood SMALL Negative Urine PH 7.5 6.5-7.5 Urine Protein - Dipstick NEGATIVE mg/dL Negative Urine Urobilinogen - Dipstick 0.2 E.U./dL 0.2-1.0 Urine Nitrite - Dipstick NEGATIVE Negative Urine Leuk Esterase LARGE Negative Urine RBC 0-2 rbc/hpf 0-2 Urine WBC 20-30 wbc/hpf High 0-7 Urine Epithelial Cells VERY FEW /lpf None Seen Urine Bacteria FEW None Seen Source: URINE, CLEAN CAT <SEE NOTE> 28 Urine HCG 04/10/2016 [facility] Urine HCG NEGATIVE Negative 29, (Qualitative) [address] (Qualitative) 30 [place] [address] [phone] Source: URINE, CLEAN CAT <SEE NOTE> 31 Urinalysis With 04/10/2016 [facility] Urine Color ORANGE Yellow Microscopic [address] [place] [address] [phone] Urine Clarity SL CLOUDY Clear Urine Glucose - Dipstick 250 mg/dL High Negative Urine Bilirubin - Dipstick SMALL Negative Urine Ketone TRACE mg/dL High Negative Urine Specific [place] 1.010 1.010-1.030 Urine Blood MODERATE Negative Urine PH 7.5 6.5-7.5 Urine Protein - Dipstick 100 mg/dL High Negative Urine Urobilinogen - Dipstick 4.0 E.U./dL High 0.2-1.0 Urine Nitrite - Dipstick POSITIVE Negative Urine Leuk Esterase LARGE Negative Urine RBC 20-30 rbc/hpf High 0-2 Urine WBC 30-50 wbc/hpf High 0-7 Urine Epithelial Cells MODERATE /lpf None Seen 32 Urine Bacteria MODERATE None Seen Source: URINE, CLEAN CAT <SEE NOTE> 33 Culture If 04/10/2016 [facility] Culture If CULTURE TO [address] Indicated FOLLO <[place] [address] Comment NOTE> [phone] Source: URINE, CLEAN CAT <SEE NOTE> 35 Urine Culture 04/10/2016 [facility] Urine Culture ESCHERICHIA COLI [address] [place] [address] [phone] Quantity > 100,000 CFU/mL 37 Urine Culture URETHRAL BRANDON Quantity 50,000 - 100,000 <SEE NOTE> 38 Ast-GN67 04/10/2016 [facility] Nitrofurantoin <=[address] [place] [id number] [phone] Trimethoprim/Sulfamethoxazole <=20 Ampicillin 4 Cefazolin <=4 Ampicillin/Sulbactam 4 Ciprofloxacin <=0.25 Piperacillin/Tazobactam <=4 Ceftazidime <=1 Ceftriaxone <=1 Cefepime <=1 Levofloxacin <=0.12 Imipenem <=0.25 Gentamicin <=1 Tobramycin <=1 Hemoglobin/Hematocrit 03/01/2015 [facility] Hemoglobin 10.5 Low 11.6-15.[address] gm/[place] [address] [phone] Hematocrit 30.6 % Low 36.0-46.1 Type And Screen 02/28/2015 [facility] Patient Blood Type A POS [address] [place] [address] [phone] Antibody Screen Negative Negative CBC 02/28/2015 [facility] White Blood Count 14.5 K/ uL High 3.1-10.[address] [place] [address] [phone] Red Blood Count 4.20 M/uL 3.90-5.40 Hemoglobin 12.4 gm/dL 11.6-15.8 Hematocrit 36.2 % 36.0-46.1 Mean Cell Volume 86.2 fl 80.9-99.0 Mean Corpuscular HGB 29.5 pg 25.9-32.7 Mean Corpuscular HGB Conc 34.3 g/dL 30.8-34.3 Platelet Count 355 K/uL 155-360 Red Cell Distri Width %CV 13.8 % 11.7-14.4 Mean Platelet Volume 10.1 fL 8.9-12.4 Laboratory test 02/28/2015 [facility] Treponema Nonreactive [address] [place] [place] [address] [place] [phone] Laboratory test 02/14/2015 [facility] Ua RFX Micro See Note [address] + Culture II [place], [place] [address] [phone] Comprehensive 02/14/2015 [facility] Glucose 92 mg/dL 74-1 Metabolic Panel [address] 06 [place], [place] [address] [phone] BUN 12 mg/dL 7-18 Creatinine 0.8 mg/dL 0.6-1.3 Glom Filtration Rate, Estimate >60 mL/min >60 If >60 mL/min >60 41 BUN/Creat 15.0 ratio Sodium 138 mmol/L 136-145 Potassium 3.8 mmol/L 3.5-5.1 Chloride 107 mmol/L 98-107 Carbon Dioxide 21 mmol/L 21-32 Anion Gap 10 mEq/L 8-16 Calcium 8.7 mg/dL 8.5-10.1 Total Protein 6.4 g/dL 6.4-8.2 Albumin 2.7 g/dL Low 3.4-5.0 Globulin 3.7 g/dL 1.9-4.3 Alb/Glob 0.7 ratio Bilirubin,Total 0.2 mg/dL 0.2-1.0 Sgot/Ast 13 U/L Low 15-37 42 SGPT/Alt 15 U/L 12-78 Alkaline Phosphatase 89 U/L 45-117 CBC 02/14/2015 [facility] White Blood Count 15.7 K/ uL High 3.1-10.[address] [place] [address] [phone] Red Blood Count 3.97 M/uL 3.90-5.40 Hemoglobin 11.7 gm/dL 11.6-15.8 Hematocrit 34.2 % Low 36.0-46.1 Mean Cell Volume 86.1 fl 80.9-99.0 Mean Corpuscular HGB 29.5 pg 25.9-32.7 Mean Corpuscular HGB Conc 34.2 g/dL 30.8-34.3 Platelet Count 330 K/uL 155-360 Red Cell Distri Width %CV 13.3 % 11.7-14.4 Mean Platelet Volume 9.4 fL 8.9-12.4 Urinalysis With 02/14/2015 [facility] Urine Color YELLOW Yellow Microscopic [address] [place], [place] [address] [phone] Urine Clarity SL CLOUDY Clear Urine Glucose - Dipstick NEGATIVE mg/dL Negative Urine Bilirubin - Dipstick NEGATIVE Negative Urine Ketone NEGATIVE mg/dL Negative Urine Specific [place] 1.010 1.010-1.030 Urine Blood LARGE High Negative Urine PH 6.5 6.5-7.5 Urine Protein - Dipstick NEGATIVE mg/dL Negative Urine Urobilinogen - Dipstick 0.2 E.U./dL 0.2-1.0 Urine Nitrite - Dipstick NEGATIVE Negative Urine Leuk Esterase SMALL High Negative Urine RBC 30-50 rbc/hpf High 0-2 Urine WBC 2-5 wbc/hpf 0-7 Urine Epithelial Cells FEW NONESEEN/lpf Urine Bacteria FEW NONESEEN Urine Amorph Sediment MODERATE Negative Comprehensive Metabolic 09/14/2014 [facility] Glucose 82 mg/dL 74-[address] [place] [address] [phone] BUN 9 mg/dL 7-18 Creatinine 0.5 mg/dL Low 0.6-1.3 Glom Filtration Rate, Estimate >60 mL/min >60 If >60 mL/min >60 43 BUN/Creat 18.0 ratio Sodium 136 mmol/L 136-145 Potassium 3.5 mmol/L 3.5-5.1 Chloride 102 mmol/L 98-107 Carbon Dioxide 22 mmol/L 21-32 Anion Gap 12 mEq/L 8-16 Calcium 9.2 mg/dL 8.5-10.1 Total Protein 7.1 g/dL 6.4-8.2 Albumin 3.5 g/dL 3.4-5.0 Globulin 3.6 g/dL 1.9-4.3 Alb/Glob 1.0 ratio Bilirubin,Total 0.3 mg/dL 0.2-1.0 Sgot/Ast 11 U/L Low 15-37 44 SGPT/Alt 20 U/L 12-78 Alkaline Phosphatase 39 U/L Low 45-117 CBC W/Automated 09/14/2014 [facility] White Blood 10.5 K/uL 3.1-10.[address] Count [place], [place] [id number] [phone] Red Blood Count 4.17 M/uL 3.90-5.40 Hemoglobin 13.0 gm/dL 11.6-15.8 Hematocrit 36.9 % 36.0-46.1 Mean Cell Volume 88.5 fl 80.9-99.0 Mean Corpuscular HGB 31.2 pg 25.9-32.7 Mean Corpuscular HGB Conc 35.2 g/dL High 30.8-34.3 Platelet Count 365 K/uL High 155-360 Red Cell Distri Width SD 38.8 fl 3-47 Red Cell Distri Width %CV 12.4 % 11.7-14.4 Mean Platelet Volume 9.5 fL 8.9-12.4 Neut# 7.62 K/uL High 1.0-7.0 Lymph # 2.02 K/uL 1.8-7.0 [place] # 0.78 K/uL 0.3-0.9 Eos # 0.05 K/uL 0.0-0.5 Baso # 0.03 K/uL 0.0-0.1 Differential-WBC 09/14/2014 [facility] Total Cells 100 #CELLS Confirm [address] Counted [place], [place] [address] [phone] Myelocyte% 1 % High -0 Neutrophils% 76 % High 33-73 Lymph% 17 % 17-56 Monocyte% 3 % 0-10 Eosinophil% 3 % 0-5 Platelet Estimate NORMAL Toxic Granulation 0-1+ Urine Screen 08/20/2014 [facility] Urine Color YELLOW Yellow [address] [place], [place] [id number] [phone] Urine Clarity CLEAR Clear Urine Glucose - Dipstick NEGATIVE mg/dL Negative Urine Bilirubin - Dipstick NEGATIVE Negative Urine Ketone NEGATIVE mg/dL Negative Urine Specific [place] 1.015 1.010-1.030 Urine Blood TRACE Negative Urine PH 7.0 6.5-7.5 Urine Protein - Dipstick NEGATIVE mg/dL Negative Urine Urobilinogen - Dipstick 0.2 E.U./dL 0.2-1.0 Urine Nitrite - Dipstick NEGATIVE Negative Urine Leuk Esterase NEGATIVE Negative Culture,Urine,Voided 02/21/2014 [facility] URINE-CLEAN CATC [address] <SEE NOTE> [place] [address] [phone] Organism #1 SEE NOTE 46 [employer] GN24 02/21/2014 [facility] Amoxicillin/Clavulanate S (4) Susceptibility Org1 [address] [place] [address] [phone] Ampicillin S (4) Ampicillin/Sulbact S (4) Cefazolin S (<=4) Cefepime S (<=1) Ceftazidime S (<=1) Ceftriaxone S (<=1) Ciprofloxacin S (<=0.25) Ertapenem S (<=0.5) Gentamicin S (<=1) Imipenem S (<=0.25) Levofloxacin S (<=0.12) Nitrofurantoin S (<=16) Piperacillin/Tazobactam S (<=4) Tobramycin S (<=1) Trimethoprim/Sulfa S (<=20) 47 Culture,Urine,Voided 02/07/2013 [facility] URINE-CC [address] [place] [address] [phone] Organism #1 (SEE NOTE) 48 CBS W/Automated 12/06/2012 [facility] White Blood 7.5 K/uL 3.1-10.[address] [place] [address] [phone] Red Blood Count 4.38 M/uL 3.90-5.40 Hemoglobin 13.8 gm/dL 11.6-15.8 Hematocrit 39.6 % 36.0-46.1 Mean Cell Volume 90.4 fl 80.9-99.0 Mean Corpuscular HGB 31.5 pg 25.9-32.7 Mean Corpuscular HGB Conc 34.8 g/dL High 30.8-34.3 Platelet Count 368 K/uL High 155-360 Red Cell Distri Width SD 40.0 fl 3-47 Red Cell Distri Width %CV 12.3 % 11.7-14.4 Mean Platelet Volume 9.9 fL 8.9-12.4 Neut% 59.2 % 40.4-72.8 Lymph % 32.0 % 17.0-46.1 [place] % 7.6 % 4.3-13.2 Eo% 0.9 % 0.0-6.6 Bas% 0.3 % 0.0-1.1 Neut# 4.41 K/uL 1.0-7.0 Lymph # 2.39 K/uL 0.8-3.4 [place] # 0.57 K/uL 0.3-0.9 Eos # 0.07 K/uL 0.0-0.5 Baso # 0.02 K/uL 0.0-0.1 TSH+Free T4 12/06/2012 [facility] Thyroid Stim 0.99 uIU/mL 0.49-4.67 ([place] & [address] Hormone [facility] [place], [place] [id number] [phone] Free T4 1.00 ng/dL 0.71-1.85 Laboratory test 12/06/2012 [facility] Direct LDL 118 mg/dL High 0-99 [address] Cholesterol [place], [place] [address]57 [phone] Basic Metabolic 12/06/2012 [facility] Glucose 100 mg/ dL 76-[address] [place], [place] [id number] [phone] BUN 11 mg/dL 5-23 Creatinine 0.7 mg/dL 0.5-1.4 Glom Filtration Rate, Estimate >60 mL/min >60 If >60 mL/min >60 50 BUN/Creat 15.7 ratio Sodium 139 mmol/L 136-145 Potassium 4.0 mmol/L 3.5-5.1 Chloride 106 mmol/L 98-107 Carbon Dioxide 26 mEq/L 18-29 Anion Gap 11 mEq/L 8-16 Calcium 9.4 mg/dL 8.5-10.1 Urine Culture And 08/15/2012 [facility] Urine Culture (SEE NOTE) [address] [place] [address] [phone] Culture,Urine,Voided 12/08/2011 [facility] URINE-CLEAN [address] CATC <[place] [address] NOTE> [phone] Final Report (SEE NOTE) 53 Culture,Urine,Voided 04/13/2011 [facility] URINE-CC [address] [place] [address] [phone] Final Report (SEE NOTE) 54 Laboratory test 11/13/2010 [facility] Urine Screen See Note [address] [place], [place] [id number] [phone] Urinalysis With 11/13/2010 [facility] Urine Color YELLOW Yellow Microscopic [address] [place] [address] [phone] Urine Clarity CLEAR Clear Urine Glucose - Dipstick NEGATIVE mg/dL Negative Urine Bilirubin - Dipstick NEGATIVE Negative Urine Ketone NEGATIVE mg/dL Negative Urine Specific [place] 1.015 1.010-1.030 Urine Blood TRACE Negative Urine PH 7.0 6.5-7.5 Urine Protein - Dipstick NEGATIVE mg/dL Negative Urine Urobilinogen - Dipstick 0.2 E.U./dL 0.2-1.0 Urine Nitrite - Dipstick NEGATIVE Negative Urine Leuk Esterase SMALL High Negative Urine RBC 5-7 rbc/hpf 0-7 Urine WBC 20-25 wbc/hpf High 0-7 Urine Epithelial Cells FEW NONESEEN Urine Bacteria MANY NONESEEN High Urine Mucus SMALL NONESEEN Laboratory test 11/13/2010 [facility] Urine HCG NEGATIVE Negative [address] (Qualitative) [place], [place] [id number] [phone] Laboratory test 10/25/2010 [facility] Throat Strep See Note [address] Screen [place], [place] [address] [phone] Laboratory test 08/04/2010 [facility] Urine HCG NEGATIVE Negative [address] (Qualitative) [place], [place] [address] [phone] Urinalysis With 08/04/2010 [facility] Urine Color YELLOW Yellow Microscopic [address] [place] [address] [phone] Urine Clarity CLOUDY Clear Urine Glucose - Dipstick NEGATIVE mg/dL Negative Urine Bilirubin - Dipstick NEGATIVE Negative Urine Ketone NEGATIVE mg/dL Negative Urine Specific [place] 1.020 1.010-1.030 Urine Blood NEGATIVE Negative Urine PH 7.0 6.5-7.5 Urine Protein - Dipstick NEGATIVE mg/dL Negative Urine Urobilinogen - Dipstick 0.2 E.U./dL 0.2-1.0 Urine Nitrite - Dipstick NEGATIVE Negative Urine Leuk Esterase TRACE High Negative Urine RBC NONE SEEN rbc/hpf 0-7 Urine WBC 20-25 wbc/hpf High 0-7 Urine Epithelial Cells MANY NONESEEN 59 Urine Bacteria VERY FEW NONESEEN Urine Mucus MODERATE NONESEEN Urine Amorph Sediment SMALL Negative Laboratory test 08/04/2010 [facility] Urine Screen See Note 60 finding [address] [place] [address] [phone] Laboratory test 08/04/2010 [facility] Urine Culture See Note 61 finding [address] [place] [address] [phone] Basic Metabolic 11/14/2009 [facility] Glucose 91 mg/ dL 76-115 Panel [address] [place] [address] [phone] BUN 16 mg/dL 5-23 Creatinine 0.7 mg/dL 0.5-1.4 Glom Filtration Rate, Estimate >60 mL/min >60 If >60 mL/min >60 62 BUN/Creat 22.8 Sodium 141 mEq/L 136-145 Potassium 3.7 mEq/L 3.5-5.1 Chloride 105 mEq/L 98-107 Carbon Dioxide 26 mEq/L 21-32 Anion Gap 14 mEq/L 8-16 Calcium 8.9 mg/dL 8.5-10.1 CBC 11/14/2009 [facility] White Blood Count 6.5 K/uL 3.1-10.7 [address] [place] [address] [phone] Red Blood Count 4.28 M/uL 3.90-5.40 Hemoglobin 13.2 gm/dL 11.6-15.8 Hematocrit 38.6 % 36.0-46.1 Mean Cell Volume 90.2 fl 80.9-99.0 Mean Corpuscular HGB 30.8 pg 25.9-32.7 Mean Corpuscular HGB Conc 34.2 g/dL 30.8-34.3 Platelet Count 347 K/uL 155-360 Red Cell Distri Width %CV 12.2 % 11.7-14.4 Mean Platelet Volume 9.8 fL 8.9-12.4 Laboratory test 11/09/2007 [facility] Glucose 94 mg/ dL 76-[address] [place], [place] [id number] [phone] CBC W/Automated 11/09/2007 [facility] White Blood 7.6 K/uL 3.1-10.[address] Count [place], [place] [address] [phone] Red Blood Count 4.48 M/uL 3.90-5.40 Hemoglobin 13.7 gm/dL 11.6-15.8 Hematocrit 41.1 % 36.0-46.1 Mean Cell Volume 91.7 fl 80.9-99.0 Mean Corpuscular HGB 30.6 pg 25.9-32.7 Mean Corpuscular HGB Conc 33.3 g/dL 30.8-34.3 Platelet Count 349 K/uL 155-360 Red Cell Distri Width %CV 12.8 % 11.7-14.4 Mean Platelet Volume 9.2 fL 8.9-12.4 Neut% 56.3 % 40.4-72.8 Lymph % 32.7 % 17.0-46.1 [place] % 8.3 % 4.3-13.2 Eo% 2.2 % 0.0-6.6 Bas% 0.5 % 0.0-1.1 Neut# 4.3 K/uL 1.0-7.0 Lymph # 2.5 K/uL 0.8-3.4 [place] # 0.6 K/uL 0.3-0.9 Eos # 0.2 K/uL 0.0-0.5 Baso # 0.0 K/uL 0.0-0.1 Red Cell Distri Width SD 42 fl 3-47 Throat-Beta Strept 07/10/2005 [facility] Throat-Beta Strep [facility] [phone] [address] [phone] 1 POSS UTI 2 ESCHERICHIA COLI 3 > 100,000 CFU/mL 4 10,000 - 50,000 CFU/mL 5 CULTURE TO FOLLOW 6 URINE, CLEAN CATCH 7 Note: Persistent reduction for 3 months or more in an eGFR <60 mL/min/1.73 m2 defines CKD. Patients with eGFR values >/=60 mL/min/1.73 m2 may also have CKD if evidence of persistent proteinuria is present. The original MDRD equation for estimated GFR is not valid for patients less than 18 years of age. Additional information may be found at [email or web address]. 8 URINE, CLEAN CATCH 9 FIRST MORNING SPECIMENS GENERALLY CONTAIN THE HIGHEST CONCENTRATION OF HCG AND ARE RECOMMENDED FOR EARLY DETECTION OF . Method: Quidel QuickVue One-Step Immunoassay 10 URINE, CLEAN CATCH 11 URINE-CLEAN CATCH 12 MULTIPLE ORGANISMS PRESENT, EACH <10,000 CFU/ML. THESE ORGANISMS COMMONLY FOUND ON EXTERNAL AND INTERNAL GENITALIA, ARE CONSIDERED TO BE COLONIZERS. NO FURTHER TESTING PERFORMED. 13 UTI 14 Note: Persistent reduction for 3 months or more in an eGFR <60 mL/min/1.73 m2 defines CKD. Patients with eGFR values >/=60 mL/min/1.73 m2 may also have CKD if evidence of persistent proteinuria is present. The original MDRD equation for estimated GFR is not valid for patients less than 18 years of age. Additional information may be found at [email or web address]. 15 Note: Persistent reduction for 3 months or more in an eGFR <60 mL/min/1.73 m2 defines CKD. Patients with eGFR values >/=60 mL/min/1.73 m2 may also have CKD if evidence of persistent proteinuria is present. The original MDRD equation for estimated GFR is not valid for patients less than 18 years of age. Additional information may be found at [email or web address]. 16 NO GROWTH: FINAL REPORT 17 NO GROWTH: FINAL REPORT 18 MIXED URETHRAL BRANDON 19 > 100,000 CFU/mL SPECIMEN IS A MIX OF GRAM NEGATIVE AND GRAM POSITIVE ORGANISMS. UNABLE TO DETERMINE WHICH ORGANISMS ARE FROM THE URINARY TRACT OR THE RESULT OF SKIN VAGINAL PERIANAL CONTAMINATION DURING COLLECTION. SUGGEST REPEAT SPECIMEN IF CLINICALLY INDICATED. 20 Note: Persistent reduction for 3 months or more in an eGFR <60 mL/min/1.73 m2 defines CKD. Patients with eGFR values >/=60 mL/min/1.73 m2 may also have CKD if evidence of persistent proteinuria is present. The original MDRD equation for estimated GFR is not valid for patients less than 18 years of age. Additional information may be found at [email or web address]. 21 PYELONEPHRITIS 22 UTI 23 NO GROWTH: FINAL REPORT 24 NO GROWTH: FINAL REPORT 25 [id number] 26 SEE RESULT BELOW Name: ABIGAIL MARAVILLA : [address]: Srini Alberto MD Acct: [id number] Unit: [id number] AGE: 31 Location: [facility] Re07/07/16 SEX: F Status: DEP ER SPEC: [id number] EFFIE: 07/07/16-1043 [facility] DR: Srini Alberto MD REQ: [id number] RECD: 07/07/16-141 STATUS: ASHLEY RUEDA DR: [facility] May Dan MD _ SOURCE: URINE SPDES: ORDERED: Urine Culture COMMENTS: [id number] Procedure Result Reported Site Urine Culture Final 07/09/16- 0841 ML Organism 1 ESCHERICHIA COLI [place] Count >100,000 (Many) CFU/ML 1. ESCHERICHIA COLI M.I.C. RX --------- ------ Ampicillin 8 S Cefazolin <=4 S Cefepime <=1 S Ceftriaxone <=1 S Ciprofloxacin <=0.25 S Gentamicin <=1 S Levofloxacin <=0.12 S Meropenem <=0.25 S Nitrofurantoin <=16 S Tetracycline <=1 S Pipercillin/Tazobactam <=4 S Trimethoprim/Sulfamethoxazole <=20 S Amoxicillin/Clavulanic Acid 4 S Aztreonam <=1 S Contact the Microbiology Department for any additional antibiotic reporting. * ML - MAIN LAB ([facility]) . END OF REPORT * ML=Testing performed at Main Lab DEPARTMENT OF PATHOLOGY, [address] [place] [address] Omari Kelsey M.D. Director [facility] # [id number] 27 UTI, RIGHT SIDE BACK PAIN 28 URINE, CLEAN CATCH 29 UTI 30 FIRST MORNING SPECIMENS GENERALLY CONTAIN THE HIGHEST CONCENTRATION OF HCG AND ARE RECOMMENDED FOR EARLY DETECTION OF . 31 URINE, CLEAN CATCH 32 POSSIBLE UROGENITAL CONTAMINATION. 33 URINE, CLEAN CATCH 34 CULTURE TO FOLLOW 35 URINE, CLEAN CATCH 36 ESCHERICHIA COLI 37 > 100,000 CFU/mL 38 50,000 - 100,000 CFU/mL 39 Please Note: A nonreactive test result does not exclude the possibility of exposure to, or infection with syphilis. T. pallidum antibodies may be undetectable in some stages of the infection and in some clinical conditions. 40 02/14/15 LAB.EMM1 Deleted by [facility] 41 Note: Persistent reduction for 3 months or more in an eGFR <60 mL/min/1.73 m2 defines CKD. Patients with eGFR values >/=60 mL/min/1.73 m2 may also have CKD if evidence of persistent proteinuria is present. The original MDRD equation for estimated GFR is not valid for patients less than 18 years of age. Additional information may be found at [email or web address]. 42 Values below the stated reference ranges of AST and ALT can be seen in normal populations. Clinical correlation is suggested. 43 Note: Persistent reduction for 3 months or more in an eGFR <60 mL/min/1.73 m2 defines CKD. Patients with eGFR values >/=60 mL/min/1.73 m2 may also have CKD if evidence of persistent proteinuria is present. The original MDRD equation for estimated GFR is not valid for patients less than 18 years of age. Additional information may be found at [email or web address]. 44 Values below the stated reference ranges of AST and ALT can be seen in normal populations. Clinical correlation is suggested. 45 URINE-CLEAN CATCH 46 ESCHERICHIA COLI GREATER THAN 100,000 CFU/ML 47 ( )=MINIMUM INHIBITORY CONCENTRATION IN MCG/ML 48 STAPHYLOCOCCUS SAPROPHYTICUS 50,000 - 100,000 CFU/ML [facility] IN THE 2006 GUIDELINES, DOES NOT ADVISE ROUTINE SUSCEPTIBILITY TESTING OF URINE ISOLATES OF S. SAPROPHYTICUS BECAUSE INFECTIONS RESPOND TO URINARY CONCENTRATIONS OF AGENTS COMMONLY USED TO TREAT ACUTE, UNCOMPLICATED UTI SUCH NITROFURANTOIN, TRIMETHOPRIM- SUFAMETHOXAZOLE OR A FLUOROQUINOLINE 49 Performed at: [facility] [address] [id number] Call Center Director: Stephani Higgins MD, Phone: [phone] Note: Persistent reduction for 3 months or more in an eGFR <60 mL/min/1.73 m2 defines CKD. Patients with eGFR values >/=60 mL/min/1.73 m2 may also have CKD if evidence of persistent proteinuria is present. The original MDRD equation for estimated GFR is not valid for patients less than 18 years of age. Additional information may be found at [email or web address]. 51 RUN DATE: 08/17/12 [facility] LAB LIVE PAGE 1 RUN TIME: [address] [place] [id number] Specimen Inquiry Name: ABIGAIL ROLLINS : [address]: Luis Moran MD Acct: [id number] Unit: [id number] AGE: 27 Location: [facility] Re08/15/12 SEX: F Status: DEP ER SPEC: [id number] EFFIE: 08/15/12-1015 [facility] DR: Luis Moran MD REQ: [id number] RECD: 08/15/12 STATUS: ASHLEY RUEDA DR: May Dan MD _ S[facility] ORDERED: Urine Culture Procedure Result Verified Site Urine Culture Final 08/17/12- 0900 ML Few Enterobacteriacae; possible contamination. END OF REPORT * ML=Testing performed at Main Lab DEPARTMENT OF PATHOLOGY, [address] [place] [address] Omari Kelsey M.D. Director [facility] Permit #[id number] 52 URINE-CLEAN CATCH 53 NO GROWTH 54 MULTIPLE ORGANISMS PRESENT, EACH <10,000 CFU/ML. THESE ORGANISMS COMMONLY FOUND ON EXTERNAL AND INTERNAL GENITALIA, ARE CONSIDERED TO BE COLONIZERS. NO FURTHER TESTING PERFORMED. 55 11/13/10 LAB.RAB Deleted by [facility] 56 FIRST MORNING SPECIMENS GENERALLY CONTAIN THE HIGHEST CONCENTRATION OF HCG AND ARE RECOMMENDED FOR EARLY DETECTION OF . 57 Organism 1 ! BETA HEMOLYTIC STREP NON A QUANTITY ! MODERATE 58 FIRST MORNING SPECIMENS GENERALLY CONTAIN THE HIGHEST CONCENTRATION OF HCG AND ARE RECOMMENDED FOR EARLY DETECTION OF . 59 POSSIBLE UROGENITAL CONTAMINATION. 60 08/04/10 LAB.RAP Deleted by [facility]AC[facility] 61 NO GROWTH: FINAL REPORT 62 Note: Persistent reduction for 3 months or more in an eGFR <60 mL/min/1.73 m2 defines CKD. Patients with eGFR values >/=60 mL/min/1.73 m2 may also have CKD if evidence of persistent proteinuria is present. The original MDRD equation for estimated GFR is not valid for patients less than 18 years of age. Additional information may be found at [email or web address]. 63 NEGATIVE FOR GROUP A STREP Procedures Date Code Description Status 11/20/2009 36183 PFT Evaluation Completed Encounters Type Date Location Provider Dx Diagnosis Office Visit 02/07/2018 Main Office May Dan M.D. F41.1 Generalized anxiety 3:30p disorder G89.4 Chronic pain syndrome Office Visit 01/12/2018 2:30p Main Office May Dan F41.1 Generalized anxiety M.D. disorder Office Visit 12/23/2017 3:30p Main Office May Dan J20.9 Acute bronchitis, M.D. unspecified Office Visit 12/13/2017 3:30p Main Office May Dan, J01.90 Acute sinusitis, M.D. unspecified F41.1 Generalized anxiety disorder Office Visit 10/20/2017 1:30p Main Office May Dan, Z00.00 Encntr for general M.D. adult medical exam w/o abnormal findings Office Visit 09/28/2017 3:15p Main Office May Dan F41.1 Generalized anxiety M.D. disorder G89.4 Chronic pain syndrome Office Visit 08/18/2017 10:30a Main Office May Dan F41.1 Generalized anxiety M.D. disorder G89.4 Chronic pain syndrome Office Visit 07/22/2017 2:45p Main Office May Dan F41.1 Generalized anxiety M.D. disorder Office Visit 07/20/2017 1:45p Main Office May Dan F41.1 Generalized anxiety M.D. disorder G89.4 Chronic pain syndrome Office Visit 07/07/2017 11:30a Main Office May Dan F41.1 Generalized anxiety M.D. disorder F43.0 Acute stress reaction F43.23 Adjustment disorder with mixed anxiety and depressed mood Office Visit 06/22/2017 3:15p Main Office May Dan F41.1 Generalized anxiety M.D. disorder G89.4 Chronic pain syndrome Office Visit 05/19/2017 10:45a Main Office May Dan F41.1 Generalized anxiety M.D. disorder Office Visit 04/28/2017 11:00a Main Office May Dan F41.1 Generalized anxiety M.D. disorder G89.4 Chronic pain syndrome Office Visit 03/29/2017 2:15p Main Office May Dan, F41.1 Generalized anxiety M.D. disorder Office Visit 02/24/2017 2:45p Main Office May Dan, J09.x2 Flu due to ident M.D. novel influenza A virus w oth resp manifest Office Visit 02/02/2017 2:45p Main Office [facility] Dan, N39.0 Urinary tract M.D. infection, site not specified F41.1 Generalized anxiety disorder G89.4 Chronic pain syndrome Office Visit 01/05/2017 11:45a Main Office May Dan F41.1 Generalized anxiety M.D. disorder G89.4 Chronic pain syndrome Office Visit 12/08/2016 3:00p Main Office May Dan F41.1 Generalized anxiety M.D. disorder Office Visit 11/10/2016 11:45a Main Office May Dan F41.1 Generalized anxiety M.D. disorder G89.4 Chronic pain syndrome Office Visit 10/13/2016 3:15p Main Office May Dan F41.1 Generalized anxiety M.D. disorder G89.4 Chronic pain syndrome Office Visit 09/22/2016 2:15p Main Office May Dan F41.1 Generalized anxiety M.D. disorder G89.4 Chronic pain syndrome Office Visit 07/22/2016 11:45a Main Office May Dan M.D. N10 Acute pyelonephritis G43.109 Migraine with aura, not intractable, w/o status migrainosus F41.1 Generalized anxiety disorder Office Visit 05/25/2016 2:15p Main Office May Dan, G43.109 Migraine with aura, M.D. not intractable, w/o status migrainosus F41.1 Generalized anxiety disorder Office Visit 04/28/2016 1:30p Main Office May Dan F41.1 Generalized anxiety M.D. disorder G43.109 Migraine with aura, not intractable, w/o status migrainosus Office Visit 03/03/2016 1:30p Main Office May Dan F41.1 Generalized anxiety M.D. disorder G43.109 Migraine with aura, not intractable, w/o status migrainosus Office Visit 01/07/2016 1:45p Main Office May Gauss, F41.1 Generalized anxiety M.D. disorder Office Visit 12/10/2015 3:30p Main Office May Dan, F41.1 Generalized anxiety M.D. disorder G43.109 Migraine with aura, not intractable, w/o status migrainosus Office Visit 11/12/2015 2:15p Main Office May aDn, N39.0 Urinary tract M.D. infection, site not specified F41.1 Generalized anxiety disorder G43.109 Migraine with aura, not intractable, w/o status migrainosus Office Visit 10/16/2015 2:45p Main Office May Dan, F41.1 Generalized anxiety M.D. disorder G43.109 Migraine with aura, not intractable, w/o status migrainosus Office Visit 09/12/2015 3:00p Main Office May Dan, J01.90 Acute sinusitis, M.D. unspecified Office Visit 08/15/2015 2:15p Main Office May Dan F41.1 Generalized anxiety M.D. disorder Office Visit 07/09/2015 2:00p Main Office May Dan, F41.1 Generalized anxiety M.D. disorder G43.109 Migraine with aura, not intractable, w/o status migrainosus Office Visit 02/11/2015 2:00p Main Office May Dan, F41.1 Generalized anxiety M.D. disorder Office Visit 01/09/2015 11:15a Main Office May Dan, F41.1 Generalized anxiety M.D. disorder Office Visit 12/11/2014 10:45a Main Office May Dan 300.02 Anxiety Disorder M.D. Generalized 493.10 Asthma Intrinsic Unspecified Office Visit 10/17/2014 11:30a Main Office May Dan, 300.02 Anxiety Disorder M.D. Generalized Office Visit 09/24/2014 1:30p Main Office May Dan 300.02 Anxiety Disorder M.D. Generalized Office Visit 09/06/2014 12:30p Main Office May Dan, 300.02 Anxiety Disorder M.D. Generalized Office Visit 06/28/2014 9:45a Main Office May Dan 300.02 Anxiety Disorder M.D. Generalized Office Visit 05/30/2014 1:30p Main Office May Gauss, 300.02 Anxiety Disorder M.D. Generalized Office Visit 05/02/2014 11:30a Main Office May Dan, 300.02 Anxiety Disorder M.D. Generalized Office Visit 04/03/2014 3:00p Main Office May Dan, 300.02 Anxiety Disorder M.D. Generalized Office Visit 03/05/2014 3:00p Main Office May Dan, 300.02 Anxiety Disorder M.D. Generalized Office Visit 02/21/2014 11:30a Main Office May Dan, 599.00 UTI / Urosepsis M.D. Infection Office Visit 02/05/2014 2:15p Main Office May Dan, 300.02 Anxiety Disorder M.D. Generalized Office Visit 12/06/2013 1:30p Main Office May Dan, 466.0 Bronchitis Acute M.D. Office Visit 11/14/2013 2:15p Main Office May Dan, 300.02 Anxiety Disorder M.D. Generalized Office Visit 10/17/2013 3:30p Main Office May Dan, 300.02 Anxiety Disorder M.D. Generalized Office Visit 10/13/2013 11:45a Main Office Vandana Bray MD 300.02 Anxiety Disorder Generalized 784.0 Headache GENERAL General Office Visit 09/11/2013 3:30p Main Office May Dan, 300.02 Anxiety Disorder M.D. Generalized 530.81 Esophageal Reflux Office Visit 08/17/2013 2:45p Main Office May Dan, 460.00 Upper Respiratory M.D. Infection Office Visit 08/14/2013 3:30p Main Office May Dan, 530.81 Esophageal Reflux M.D. 300.02 Anxiety Disorder Generalized Office Visit 07/13/2013 3:30p Main Office May Dan, 300.02 Anxiety Disorder M.D. Generalized 784.0 Headache Office Visit 07/06/2013 1:45p Main Office Vandana Bray MD 300.02 Anxiety Disorder Generalized 784.0 Headache GENERAL General Office Visit 06/05/2013 1:30p Main Office May Dan, 300.02 Anxiety Disorder M.D. Generalized Office Visit 05/04/2013 10:30a Main Office May Dan, 300.02 Anxiety Disorder M.D. Generalized Office Visit 04/13/2013 11:45a Main Office May Dan, 382.90 Otitis Media M.D. 300.02 Anxiety Disorder Generalized Office Visit 03/28/2013 11:50a Main Office May Dan, 382.90 Otitis Media M.D. Office Visit 03/01/2013 11:00a Main Office May Dan 300.02 Anxiety Disorder M.D. Generalized Office Visit 02/07/2013 11:30a Main Office May Dan, 599.0 UTI Urinary Tract M.D. Infection Site Not Spec 300.02 Anxiety Disorder Generalized Office Visit 01/10/2013 10:45a Main Office May Dan, 493.00 Asthma Extrinsic M.D. Unspecified 300.02 Anxiety Disorder Generalized 784.0 Headache Office Visit 12/07/2012 1:30p Main Office May Dan, 493.00 Asthma Extrinsic M.D. Unspecified 466.0 Bronchitis Acute 300.02 Anxiety Disorder Generalized Office Visit 10/25/2012 1:45p Main Office May Dan 300.02 Anxiety Disorder M.D. Generalized Office Visit 10/05/2012 1:30p Main Office May Dan, 477.90 Allergies M.D. 300.02 Anxiety Disorder Generalized Office Visit 08/22/2012 3:30p Main Office May Dan M.D. 599.0 UTI Urinary Tract Infection Site Not Spec 382.90 Otitis Media Office Visit 05/16/2012 2:00p Main Office May Dan, 493.00 Asthma Extrinsic M.D. Unspecified 300.02 Anxiety Disorder Generalized Office Visit 02/23/2012 2:00p Main Office May Dan, 465.8 Upper Respiratory M.D. Infections Acute Other Multiple Sites 487.1 Influenza W/ Other Respiratory Manifestations Office Visit 12/08/2011 2:30p Main Office May Dan M.D. 599.0 UTI Urinary Tract Infection Site Not Spec V72.31 Routine Survey Superintendent Examination V70.0 Examination General Medical Routine AT Health Care Facility Office Visit 10/20/2011 3:15p Main Office May Dan M.D. 784.0 Headache 493.00 Asthma Extrinsic Unspecified 599.0 UTI Urinary Tract Infection Site Not Spec V15.82 History Personal Tobacco Use Office Visit 04/13/2011 10:45a Main Office May Dan 599.00 UTI / Urosepsis M.D. Infection 599.0 UTI Urinary Tract Infection Site Not Spec Office Visit 01/27/2011 2:30p Main Office May Dan, 300.02 Anxiety Disorder M.D. Generalized 493.00 Asthma Extrinsic Unspecified 784.0 Headache 599.0 UTI Urinary Tract Infection Site Not Spec V15.82 History Personal Tobacco Use Office Visit 12/16/2010 1:30p Main Office May Dan, 493.00 Asthma Extrinsic M.D. Unspecified 784.0 Headache 599.0 UTI Urinary Tract Infection Site Not Spec 780.79 Malaise And Fatigue Other Office Visit 11/20/2009 1:45p Main Office May Dan, 493.00 Asthma Extrinsic M.D. Unspecified V15.82 History Personal Tobacco Use 705.81 Dyshidrosis Office Visit 05/21/2009 2:15p Main Office May Dan M.D. 473.90 Sinusitis 493.00 Asthma Extrinsic Unspecified 784.0 Headache Office Visit 01/20/2008 12:00p Main Office Vandana Bray MD 460.00 Upper Respiratory Infection Office Visit 11/15/2007 3:30p Main Office May Dan, V25.02 Contraceptive M.D. Measures Other Initiation V72.31 Routine Survey Superintendent Examination V70.0 Examination General Medical Routine AT Health Care Facility Office Visit 09/27/2007 1:45p Main Office May Dan, 112.9 Candidiasis Unspec M.D. Site V25.02 Contraceptive Measures Other Initiation Office Visit 03/22/2007 10:45a Main Office May Dan, 493.00 Asthma Extrinsic M.D. Unspecified V15.82 History Personal Tobacco Use V72.31 Routine Survey Superintendent Examination Office Visit 06/16/2006 11:00a Main Office May Dan, 473.90 Sinusitis M.D. Office Visit 05/11/2006 10:45a Main Office May Dan V25.02 Contraceptive M.D. Measures Other Initiation Office Visit 02/16/2006 3:30p Main Office May Dan 493.00 Asthma Extrinsic M.D. Unspecified 460.00 Upper Respiratory Infection 705.81 Dyshidrosis 110.1 Dermatophytosis Nail Office Visit 03/02/2005 2:30p Main Office May Dan M.D. 599.0 UTI Urinary Tract Infection Site Not Spec 460.00 Upper Respiratory Infection Office Visit 07/23/2004 11:00a Main Office May Dan, 493.00 Asthma Extrinsic M.D. Unspecified Office Visit 05/20/2004 2:30p Main Office May Dan, 473.90 Sinusitis M.D. Office Visit 01/24/2004 10:30a Main Office Quentin Dan, 675.24 Mastitis Nonpurulent MD Assoc W/ Cond Or Compl Plan of Treatment 02/07/2018 - May Dan M.D.F41.1 Generalized anxiety disorderNew Medication: Xanax 1 mg - 2 by mouth every 6 hours as pwngozY99.4 Chronic pain syndrome
--- OUTSIDE RECORDS SUMMARY | 2018-02-17 08:08 | XMS REPORT | Continuity of Care Document ---
:1985 External Reference #:[id number] Author Name Karla Mcadams Care Team Providers Name Role Phone May Dan MD Primary Care Physician Unavailable Payers Type Date Identification Numbers Payment Provider Subscriber Effective: Policy Number: [id number] [employer] Aibgail Maravilla 2017 PayID: [id number] [address] [address] ALEJANDRINA Shelley [phone] Expires: 2017 Policy Number: [id number] [employer] Abigail Maravilla Group Number: 17 [address] [address] PayID: [id number] ALEJANDRINA Shelley [id number] Advance Directives Description No Information Available Problems [...] 250mg 14tab 1 by mouth N39.0 May 2017 - s twice a day Gauss, 02/24/ M.D. 2016 Alprazolam XR 01/05/ Hx Tablets ER 2mg 60tab 2 tab by F41.1 May 2017 - 24HR s mouth daily Gauss, 06/22/ M.D. 2017 Alprazolam 12/09/ Hx Tablets 2mg 120ta 1 by mouth F41.1 May 2017 - Dispers bs 4 times Gauss, 12/09/ daily M.D. 2016 Alprazolam 12/09/ Hx Tablets 1mg 300ta 2 1/2 by F41.1 May 2016 - bs mouth [...] 01/06/ hours as M.D. 2016 needed Alprazolam 25/ Hx Tablets 1mg 180ta 2 by mouth F41.1 May 2015 - Dispers bs three times Gauss, 01/06/ a day M.D. 2016 Alprazolam 10/25/ Hx Tablets 1mg 180ta 2 [...] every 6 Larryuss, 08/26/ hours as M.D. 2016 needed pain Alprazolam 09/24/ Hx Tablets 1mg [...] May 2014 - bs 4 times a Gauss, 09/06/ day M.D. 2014 Pyridium 02/21/ Hx [...] po qd 382.90 May 2013 - Ni, 06/05/ M.D. 2013 Alprazolam 03/01/ Hx Tablets 1mg 120ta 1 by mouth 300.02 May 2012 - bs 4 times a Ni, 04/03/ day M.D. 2014 SMZ-TMP DS 02/07/ Hx Tablets 800-160mg 14tab 1 po bid 599.0 May 2012 - s Ni, M.D. 2012 Azithromycin 12/07/ Hx Tablets 250mg 6tabs 2 po today, 466.0 May 2012 po day 2 Larryuss, 01/09/ thru 5 M.D. 2012 Advair Diskus [...] hrs M.D. 2012 for cough Work Note Hx may return 465.2011 - to work Ni, 05/16/ 02/29/2012 M.D. 2012 Ciprofloxacin 12/07/ Hx Tablets 500mg 14tab 1 po bid 599.0 May HCL 2011 - s Ni, M.D. 2011 Ciprofloxacin 04/13/ Hx Tablets 250mg 14tab 1 po bid 599.0 May HCL 2011 - Ni, 12/07/ M.D. 2011 Alprazolam 01/27/ Hx Tablets 0.25mg 90tab 1 po tid 300.02 May 2010 - prn Ni, M.D. 2012 Pyridium 12/16/ Hx Tablets 200mg 30tab 1 tid prn 599.0 May 2010 - bladder Larryuss, 01/27/ pain M.D. 2010 Ciprofloxacin 12/16/ Hx Tablets 250mg 30tab 1 po bid 599.0 May HCL 2010 - Ni, 01/27/ M.D. 2010 Proair HFA 07/14/ Hx Aerosol 108(90Bas 3unit 2 puffs 4 May 2010 - e) mcg/ac s x daily Ni, 06/10/ M.D. 2011 Chantix 11/20/ Hx Tablets 0.5mg 60tab 1 po bid V15.82 May 2009 - s Ni, 12/16/ M.D. 2010 Betamethasone 11/20/ Hx Cream 0.05% 60rm apply to 705.81 May Dipropionate 2009 - affected Gauss, 01/09/ area bid M.D. 2012 Tramadol HCL 08/05/ Hx Tablets 50mg 120ta 1 by mouth 346.00 May 2009 - bs every 6 Gauss, 09/06/ hours as M.D. 2014 needed pain Azithromycin 05/21/ Hx Tablets 250mg 5tabs 2 po today, 473.90 May 2009 - 1 po day 2 Gauss, 11/20/ thru 5 M.D. 2009 Proair HFA 05/21/ Hx Aerosol 108(90Bas 1unit 2 puffs 4 473.90 May 2009 - e) mcg/ac s x daily Gauss, 11/20/ M.D. 2009 Tramadol HCL 05/21/ Hx Tablets 50mg 100ta 1 po q 6 784.0 May 2009 - bs hours rose Dan, 11/20/ pain M.D. 2009 Ventolin HFA 07/23/ Hx Aerosol 108mcg/Ac 2unit 2 puff qid 473.90 May 2009 - t s prn Ni, 05/21/ M.D. 2009 Proventil HFA 07/04/ Hx Aerosol 108mcg/Ac 3unit 2 puffs qid May 2009 - t s prn Ni, M.D. 2008 Zithromax Z-Khoa 01/19/ Hx Tablets 250mg 1Pak 1 po qd Vandana 2008 - MD Asa 2007 Zithromax 01/19/ Hx Tablets 250mg 6tabs 2 po day 1, Vandana 2007 - po qd x MD Asa 05/21/ days 2-5 2009 Metrogel-Vagina 11/22/ Hx Gel 0.75% 60GMS 1 May wayne 2007 - Applicator Ni, 01/19/ Per M.D. 2007 Vagina At hs Diflucan 09/28/ Hx Tablets 150mg 7tabs 1 PO qd 112.9 May 2007 - Ni, 11/14/ M.D. 2007 Diflucan 09/26/ Hx Tablets 100mg 7tabs 1 qd x 7 112.9 May 2007 - Ni, M.D. 2007 Chantix 03/22/ Hx 2unit PO [...] - s nare q day Ni, M.D. 2007 Nuvaring 05/11/ Hx Insert 0.015mg/D 4unit 1 [...] Hx Patches 0.75mg;6m 12uni apply once May 2005 - g;20mcg;1 ts A week Ni, M.D. [...] Escitalopram / Hx Tablets 20mg Unknown Oxalate - 2017 Diazepam / Hx Tablets 10mg Unknown 0000 - 2017 Quetiapine / Hx Tablets ER 150mg one tablet Unknown Fumarate ER 0000 - 24HR one time a 2017 Immunizations CPT Code Status Date Vaccine Lot # [id number] Given 10/16/2004 Tetanus And Diptheria Toxiods [id number] Given 10/16/2004 Tetanus And Diptheria Toxiods Vital [...] Result H/L Range Note Escherichia Coli 07/05/2017 [facility] Nitrofurantoin <=[address] [place] [address] [phone] Trimethoprim/Sulfamethoxazole <=20 Ampicillin 8 Cefazolin <=4 Ampicillin/Sulbactam <=2 Ciprofloxacin <=0.25 Piperacillin/Tazobactam <=4 Ceftazidime <=1 Ceftriaxone <=1 Cefepime <=1 Levofloxacin <=0.12 Imipenem <=0.25 Gentamicin <=1 Tobramycin <=1 Urine Culture 07/05/2017 [facility] Urine Culture ESCHERICHIA COLI [address] [place] [address] [phone] Quantity > 100,000 CFU/mL 3 Urine Culture URETHRAL BRANDON Quantity 10,000 - 50,000 <SEE NOTE> 4 Culture If 07/05/2017 [facility] Culture If CULTURE TO 5 Indicated Comment [address] Indicated FOLLO <[place] [address] Comment NOTE> [phone] Source: URINE, CLEAN CAT <SEE NOTE> 6 Comprehensive 07/05/2017 [facility] Glucose 103 mg/ dL 74-106 Metabolic Panel [address] [place] [address] [phone] BUN 16 mg/dL 7-18 Creatinine 0.7 mg/dL [...] Phosphatase 54 U/L 45-117 Laboratory test 07/05/2017 [facility] Thyroid Stim 0.65 uIU/mL 0.30-4.[address] Hormone [place], [place] [id number] [phone] CBS W/Automated 07/05/2017 [facility] White Blood 11.2 K/uL High 3.1-10.[address] [place] [address] [phone] Red Blood Count 4.70 M/uL 3.90-5.40 Hemoglobin [...] 40.4-72.8 Lymph % 19.9 % Low 20.0-42.0 Cocke % 5.6 % 4.3-13.2 Eo% 0.8 % 0.0-6.6 Bas% 0.2 % 0.0-1.1 Neut# 8.21 K/uL High 1.8-7.0 Lymph # 2.22 K/uL 1.0-4.0 Cocke # 0.62 K/uL 0.3-0.9 Eos # 0.09 K/uL 0.0-0.5 Baso # 0.02 K/uL 0.0-0.1 Urinalysis With 07/05/2017 [facility] Urine Color YELLOW Yellow Microscopic [address] [place], [place] [id number] [phone] Urine Clarity CLOUDY Clear Urine Glucose - Dipstick NEGATIVE mg/dL Negative Urine Bilirubin - Dipstick NEGATIVE Negative Urine Ketone TRACE mg/dL High Negative Urine Specific [place] 1.025 1.010-1.030 Urine Blood LARGE Negative Urine [...] CAT <SEE NOTE> 8 Urine HCG 07/05/2017 [facility] Urine HCG NEGATIVE Negative 9 (Qualitative) [address] (Qualitative) [place], [place] [id number] [phone] Source: URINE, CLEAN CAT <SEE NOTE> 10 Differential-WBC 07/05/2017 [facility] Total Cells 100 #CELLS Confirm [address] Counted [place], [place] [address] [phone] Neutrophils% 76 % High 33-73 Lymph% 13 % Low 20-42 Atypical Lymph% 5 % 0-7 Monocyte% 6 % 0-10 Platelet Estimate SLIGHT INCREASE RBC Morphology NORMAL Slide Review 07/05/2017 [facility] Slide Review DIFF ORDERED [address] [place], [place] [id number] [phone] Culture,Urine,V 02/02/2017 [facility] URINE-CLEAN CATC [address] <SEE NOTE> [place] [address] [phone] Final Report SEE NOTE 12 CBC 07/10/2016 [facility] White Blood Count 5.6 K/uL 3.1-10.[address] [place] [address] [phone] Red Blood Count 3.03 M/uL Low 3.90-5.40 Hemoglobin 9.6 gm/dL Low 11.6-15.8 Hematocrit 28.8 % Low 36.0-46.1 Mean Cell Volume 95.0 fl 80.9-99.0 Mean Corpuscular HGB 31.7 pg 25.9-32.7 Mean Corpuscular HGB Conc 33.3 g/dL 30.8-34.3 Platelet Count 239 K/uL 150-400 Red Cell Distri Width %CV 12.3 % 11.7-14.4 Mean Platelet Volume 10.2 fL 8.9-12.4 Comprehensive 07/10/2016 [facility] Glucose 135 mg/ dL High 74-106 Metabolic Panel [address] [place] [address] [phone] BUN 4 mg/dL Low 7-18 Creatinine 0.5 [...] Phosphatase 67 U/L 45-117 Laboratory test 07/10/2016 [facility] Magnesium 2.4 mg/dL 1.8-2.[address] [place] [address] [phone] CBS W/Automated 07/09/2016 [facility] White Blood 6.8 K/uL 3.1-10.[address] [place] [address] [phone] Red Blood Count 3.33 M/uL Low 3.90-5.40 [...] % 40.4-72.8 Lymph % 23.3 % 20.0-42.0 Cocke % 10.0 % 4.3-13.2 Eo% 1.9 % 0.0-6.6 Bas% 0.1 % 0.0-1.1 Neut# 4.42 K/uL 1.8-7.0 Lymph # 1.59 K/uL 1.0-4.0 Cocke # 0.68 K/uL 0.3-0.9 Eos # 0.13 K/uL 0.0-0.5 Baso # 0.01 K/uL 0.0-0.1 Basic Metabolic 07/09/2016 [facility] Glucose 110 mg/ dL High 74-[address] [place], [place] [id number] [phone] BUN 8 mg/dL 7-18 Creatinine 0.7 mg/dL 0.6-1.3 Glom Filtration Rate, Estimate >60 mL/min >60 If >60 mL/min >60 15 BUN/Creat 11.4 ratio Sodium 140 mmol/L 136-145 Potassium 3.6 mmol/L 3.5-5.1 Chloride 111 mmol/L High 98-107 Carbon Dioxide 23 mmol/L 21-32 Anion Gap 6 mEq/L Low 8-16 Calcium 7.1 mg/dL Low 8.5-10.1 Laboratory test 07/09/2016 [facility] Magnesium 1.8 mg/dL 1.8-2.[address] [place] [id number] [phone] Blood Culture 07/08/2016 [facility] Blood Culture NO GROWTH: [address] Aerobic FINAL <SEE [place]44 NOTE> [phone] Blood Culture Anaerobic NO GROWTH: FINAL <SEE NOTE> 17 Urine Culture 07/08/2016 [facility] Urine Culture MIXED URETHRAL F [address] <SEE NOTE> [place] [id number] [phone] Quantity > 100,000 CFU/mL 19 Comprehensive 07/08/2016 [facility] Glucose 112 mg/ dL High 74-106 Metabolic Panel [address] [place] [id number] [phone] BUN 10 mg/dL 7-18 Creatinine 0.8 mg/dL [...] Phosphatase 80 U/L 45-117 Laboratory test 07/08/2016 [facility] Lactic Acid 0.7 mmol/L 0.4-1.9 [address] [place] [address]75 [phone] Blood Culture 07/08/2016 [facility] Blood NO GROWTH: 22, [address] Culture FINAL <SEE [place] [address] Aerobic NOTE> [phone] Blood Culture Anaerobic NO GROWTH: FINAL <SEE NOTE> 24 Laboratory test 07/07/2016 [facility] Urine SEE RESULT 25, [address] [place] [address] [phone] Urinalysis With 07/07/2016 [facility] Urine Color YELLOW Yellow [address] [place] [address] [phone] Urine Clarity CLEAR Clear Urine Glucose - Dipstick NEGATIVE mg/dL Negative Urine Bilirubin - Dipstick NEGATIVE Negative Urine Ketone NEGATIVE mg/dL Negative Urine Specific [place] 1.010 1.010-1.030 Urine Blood SMALL Negative Urine [...] CAT <SEE NOTE> 28 Urine HCG 04/10/2016 [facility] Urine HCG NEGATIVE Negative 29, (Qualitative) [address] (Qualitative) 30 [place] [address] [phone] Source: URINE, CLEAN CAT <SEE NOTE> 31 Urinalysis With 04/10/2016 [facility] Urine Color ORANGE Yellow Microscopic [address] [place] [address] [phone] Urine Clarity SL CLOUDY Clear Urine Glucose - Dipstick 250 mg/dL High Negative Urine Bilirubin - Dipstick SMALL Negative Urine Ketone TRACE mg/dL High Negative Urine Specific [place] 1.010 1.010-1.030 Urine Blood MODERATE Negative Urine [...] CAT <SEE NOTE> 33 Culture If 04/10/2016 [facility] Culture If CULTURE TO [address] Indicated FOLLO <[place] [address] Comment NOTE> [phone] Source: URINE, CLEAN CAT <SEE NOTE> 35 Urine Culture 04/10/2016 [facility] Urine Culture ESCHERICHIA COLI [address] [place] [address] [phone] Quantity > 100,000 CFU/mL 37 Urine Culture URETHRAL BRANDON Quantity 50,000 - 100,000 <SEE NOTE> 38 Ast-GN67 04/10/2016 [facility] Nitrofurantoin <=[address] [place] [address] [phone] Trimethoprim/Sulfamethoxazole <=20 Ampicillin 4 Cefazolin <=4 Ampicillin/Sulbactam 4 Ciprofloxacin <=0.25 Piperacillin/Tazobactam <=4 Ceftazidime <=1 Ceftriaxone <=1 Cefepime <=1 Levofloxacin <=0.12 Imipenem <=0.25 Gentamicin <=1 Tobramycin <=1 Hemoglobin/Hematocrit 03/01/2015 [facility] Hemoglobin 10.5 Low 11.6-15.[address] gm/[place] [address] [phone] Hematocrit 30.6 % Low 36.0-46.1 Type And Screen 02/28/2015 [facility] Patient Blood Type A POS [address] [place] [address] [phone] Antibody Screen Negative Negative CBC 02/28/2015 [facility] White Blood Count 14.5 K/ uL High 3.1-10.[address] [place] [address] [phone] Red Blood Count 4.20 M/uL 3.90-5.40 Hemoglobin 12.4 gm/dL 11.6-15.8 Hematocrit 36.2 % 36.0-46.1 Mean Cell Volume 86.2 fl 80.9-99.0 Mean Corpuscular HGB 29.5 pg 25.9-32.7 Mean Corpuscular HGB Conc 34.3 g/dL 30.8-34.3 Platelet Count 355 K/uL 155-360 Red Cell Distri Width %CV 13.8 % 11.7-14.4 Mean Platelet Volume 10.1 fL 8.9-12.4 Laboratory test 02/28/2015 [facility] Treponema Nonreactive [address] [place] [address] [place] [phone] Laboratory test 02/14/2015 [facility] Ua RFX Micro See Note [address] + [place] [address] [phone] Comprehensive 02/14/2015 [facility] Glucose 92 mg/dL 74-1 Metabolic Panel [address] 06 [place], [place] [address] [phone] BUN 12 mg/dL 7-18 Creatinine 0.8 mg/dL [...] Alkaline Phosphatase 89 U/L 45-117 CBC 02/14/2015 [facility] White Blood Count 15.7 K/ uL High 3.1-10.[address] [place] [address] [phone] Red Blood Count 3.97 M/uL 3.90-5.40 Hemoglobin 11.7 gm/dL 11.6-15.8 Hematocrit 34.2 % Low 36.0-46.1 Mean Cell Volume 86.1 fl 80.9-99.0 Mean Corpuscular HGB 29.5 pg 25.9-32.7 Mean Corpuscular HGB Conc 34.2 g/dL 30.8-34.3 Platelet Count 330 K/uL 155-360 Red Cell Distri Width %CV 13.3 % 11.7-14.4 Mean Platelet Volume 9.4 fL 8.9-12.4 Urinalysis With 02/14/2015 [facility] Urine Color YELLOW Yellow Microscopic [address] [place] [address] [phone] Urine Clarity SL CLOUDY Clear Urine Glucose - Dipstick NEGATIVE mg/dL Negative Urine Bilirubin - Dipstick NEGATIVE Negative Urine Ketone NEGATIVE mg/dL Negative Urine Specific [place] 1.010 1.010-1.030 Urine Blood LARGE High Negative [...] Amorph Sediment MODERATE Negative Comprehensive Metabolic 09/14/2014 [facility] Glucose 82 mg/dL 74-[address] [place] [address] [phone] BUN 9 mg/dL 7-18 Creatinine 0.5 mg/dL [...] 39 U/L Low 45-117 CBC W/Automated 09/14/2014 [facility] White Blood 10.5 K/uL 3.1-10.[address] Count [place], [place] [id number] [phone] Red Blood Count 4.17 M/uL 3.90-5.40 Hemoglobin [...] High 1.0-7.0 Lymph # 2.02 K/uL 1.8-7.0 Cocke # 0.78 K/uL 0.3-0.9 Eos # 0.05 K/uL 0.0-0.5 Baso # 0.03 K/uL 0.0-0.1 Differential-WBC 09/14/2014 [facility] Total Cells 100 #CELLS Confirm [address] Counted [place], [place] [address] [phone] Myelocyte% 1 % High -0 Neutrophils% 76 % High 33-73 Lymph% 17 % 17-56 Monocyte% 3 % 0-10 Eosinophil% 3 % 0-5 Platelet Estimate NORMAL Toxic Granulation 0-1+ Urine Screen 08/20/2014 [facility] Urine Color YELLOW Yellow [address] [place], [place] [address] [phone] Urine Clarity CLEAR Clear Urine Glucose - Dipstick NEGATIVE mg/dL Negative Urine Bilirubin - Dipstick NEGATIVE Negative Urine Ketone NEGATIVE mg/dL Negative Urine Specific [place] 1.015 1.010-1.030 Urine Blood TRACE Negative Urine PH 7.0 6.5-7.5 Urine Protein - Dipstick NEGATIVE mg/dL Negative Urine Urobilinogen - Dipstick 0.2 E.U./dL 0.2-1.0 Urine Nitrite - Dipstick NEGATIVE Negative Urine Leuk Esterase NEGATIVE Negative Culture,Urine,Voided 02/21/2014 [facility] URINE-CLEAN CATC [address] <SEE NOTE> [place] [address] [phone] Organism #1 SEE NOTE 46 [employer] GN24 02/21/2014 [facility] Amoxicillin/Clavulanate S (4) Susceptibility Org[address] [place] [address] [phone] Ampicillin S (4) Ampicillin/Sulbact S (4) Cefazolin S (<=4) Cefepime S (<=1) Ceftazidime S (<=1) Ceftriaxone S (<=1) Ciprofloxacin S (<=0.25) Ertapenem S (<=0.5) Gentamicin S (<=1) Imipenem S (<=0.25) Levofloxacin S (<=0.12) Nitrofurantoin S (<=16) Piperacillin/Tazobactam S (<=4) Tobramycin S (<=1) Trimethoprim/Sulfa S (<=20) 47 Culture,Urine,Voided 02/07/2013 [facility] URINE-CC [address] [place] [address] [phone] Organism #1 (SEE NOTE) 48 CBS W/Automated 12/06/2012 [facility] White Blood 7.5 K/uL 3.1-10.[address] [place] [address] [phone] Red Blood Count 4.38 M/uL 3.90-5.40 Hemoglobin [...] % 40.4-72.8 Lymph % 32.0 % 17.0-46.1 Cocke % 7.6 % 4.3-13.2 Eo% 0.9 % 0.0-6.6 Bas% 0.3 % 0.0-1.1 Neut# 4.41 K/uL 1.0-7.0 Lymph # 2.39 K/uL 0.8-3.4 Cocke # 0.57 K/uL 0.3-0.9 Eos # 0.07 K/uL 0.0-0.5 Baso # 0.02 K/uL 0.0-0.1 TSH+Free T4 12/06/2012 [facility] Thyroid Stim 0.99 uIU/mL 0.49-4.67 ([place] & [address] Hormone [facility] [place] [facility]) [place], [place] [address] [phone] Free T4 1.00 ng/dL 0.71-1.85 Laboratory test 12/06/2012 [facility] Direct LDL 118 mg/dL High 0-99 [address] Cholesterol [place], [place] [address]99 [phone] Basic Metabolic 12/06/2012 [facility] Glucose 100 mg/ dL 76-[address] [place], [place] [address] [phone] BUN 11 mg/dL 5-23 Creatinine 0.7 mg/dL 0.5-1.4 Glom Filtration Rate, Estimate >60 mL/min >60 If >60 mL/min >60 50 BUN/Creat 15.7 ratio Sodium 139 mmol/L 136-145 Potassium 4.0 mmol/L 3.5-5.1 Chloride 106 mmol/L 98-107 Carbon Dioxide 26 mEq/L 18-29 Anion Gap 11 mEq/L 8-16 Calcium 9.4 mg/dL 8.5-10.1 Urine Culture And 08/15/2012 [facility] Urine Culture (SEE NOTE) [address] [place] [address] [phone] Culture,Urine,Voided 12/08/2011 [facility] URINE-CLEAN [address] CATC <[place] [address] NOTE> [phone] Final Report (SEE NOTE) 53 Culture,Urine,Voided 04/13/2011 [facility] URINE-CC [address] [place] [address] [phone] Final Report (SEE NOTE) 54 Laboratory test 11/13/2010 [facility] Urine Screen See Note [address] [place], [place] [address] [phone] Urinalysis With 11/13/2010 [facility] Urine Color YELLOW Yellow Microscopic [address] [place], [place] [address] [phone] Urine Clarity CLEAR Clear Urine Glucose - Dipstick NEGATIVE mg/dL Negative Urine Bilirubin - Dipstick NEGATIVE Negative Urine Ketone NEGATIVE mg/dL Negative Urine Specific [place] 1.015 1.010-1.030 Urine Blood TRACE Negative Urine [...] Urine Mucus SMALL NONESEEN Laboratory test 11/13/2010 [facility] Urine HCG NEGATIVE Negative [address] (Qualitative) [place], [place] [address] [phone] Laboratory test 10/25/2010 [facility] Throat Strep See Note [address] Screen [place], [place] [address] [phone] Laboratory test 08/04/2010 [facility] Urine HCG NEGATIVE Negative [address] (Qualitative) [place], [place] [address] [phone] Urinalysis With 08/04/2010 [facility] Urine Color YELLOW Yellow Microscopic [address] [place] [address] [phone] Urine Clarity CLOUDY Clear Urine Glucose - Dipstick NEGATIVE mg/dL Negative Urine Bilirubin - Dipstick NEGATIVE Negative Urine Ketone NEGATIVE mg/dL Negative Urine Specific [place] 1.020 1.010-1.030 Urine Blood NEGATIVE Negative Urine [...] Amorph Sediment SMALL Negative Laboratory test 08/04/2010 [facility] Urine Screen See Note 60 finding [address] [place] [address] [phone] Laboratory test 08/04/2010 [facility] Urine Culture See Note 61 finding [address] [place] [address] [phone] Basic Metabolic 11/14/2009 [facility] Glucose 91 mg/ dL 76-115 Panel 134 [place] [address] [phone] BUN 16 mg/dL 5-23 Creatinine 0.7 mg/dL 0.5-1.4 Glom Filtration Rate, Estimate >60 mL/min >60 If >60 mL/min >60 62 BUN/Creat 22.8 Sodium 141 mEq/L 136-145 Potassium 3.7 mEq/L 3.5-5.1 Chloride 105 mEq/L 98-107 Carbon Dioxide 26 mEq/L 21-32 Anion Gap 14 mEq/L 8-16 Calcium 8.9 mg/dL 8.5-10.1 CBC 11/14/2009 [facility] White Blood Count 6.5 K/uL 3.1-10.7 [address] [place] [address] [phone] Red Blood Count 4.28 M/uL 3.90-5.40 Hemoglobin 13.2 gm/dL 11.6-15.8 Hematocrit 38.6 % 36.0-46.1 Mean Cell Volume 90.2 fl 80.9-99.0 Mean Corpuscular HGB 30.8 pg 25.9-32.7 Mean Corpuscular HGB Conc 34.2 g/dL 30.8-34.3 Platelet Count 347 K/uL 155-360 Red Cell Distri Width %CV 12.2 % 11.7-14.4 Mean Platelet Volume 9.8 fL 8.9-12.4 Laboratory test 11/09/2007 [facility] Glucose 94 mg/ dL 76-[address] [place], [place] [address] [phone] CBC W/Automated 11/09/2007 [facility] White Blood 7.6 K/uL 3.1-10.[address] Count [place], [place] [address] [phone] Red Blood Count 4.48 M/uL 3.90-5.40 Hemoglobin 13.7 gm/dL 11.6-15.8 Hematocrit 41.1 % 36.0-46.1 Mean Cell Volume 91.7 fl 80.9-99.0 Mean Corpuscular HGB 30.6 pg 25.9-32.7 Mean Corpuscular HGB Conc 33.3 g/dL 30.8-34.3 Platelet Count 349 K/uL 155-360 Red Cell Distri Width %CV 12.8 % 11.7-14.4 Mean Platelet Volume 9.2 fL 8.9-12.4 Neut% 56.3 % 40.4-72.8 Lymph % 32.7 % 17.0-46.1 Cocke % 8.3 % 4.3-13.2 Eo% 2.2 % 0.0-6.6 Bas% 0.5 % 0.0-1.1 Neut# 4.3 K/uL 1.0-7.0 Lymph # 2.5 K/uL 0.8-3.4 Cocke # 0.6 K/uL 0.3-0.9 Eos # 0.2 K/uL 0.0-0.5 Baso # 0.0 K/uL 0.0-0.1 Red Cell Distri Width SD 42 fl 3-47 Throat-Beta Strept 07/10/2005 [facility] Throat-Beta Strep NGNBS 63 [address] [place] [address] [phone] 1 POSS UTI 2 ESCHERICHIA COLI 3 [...] REPORT 24 NO GROWTH: FINAL REPORT 25 [id number] 26 SEE RESULT BELOW Name: ABIGAIL MARAVILLA : [address]: Srini Alberto MD Acct: [id number] Unit: [id number] AGE: 31 Location: [facility] Re07/07/16 SEX: F Status: DEP ER SPEC: [id number] EFFIE: 07/07/16-[address] [facility] [address]: Srini Alberto MD REQ: [id number] RECD: 07/07/16-290 STATUS: ASHLEY RUEDA DR: [facility] May Dan MD _ SOURCE: URINE SPDESC: ORDERED: Urine Culture COMMENTS: [id number] Procedure Result Reported Site Urine Culture Final 07/09/16- 0841 ML Organism 1 ESCHERICHIA COLI [place] Count >100,000 (Many) CFU/ML 1. ESCHERICHIA COLI [...] antibiotic reporting. * ML - MAIN LAB ([facility]) . END OF REPORT * ML=Testing performed at Main Lab DEPARTMENT OF PATHOLOGY, [address] [place] [address] Omari Kelsey M.D. Director [facility] # [id number] 27 UTI, RIGHT SIDE BACK PAIN 28 [...] 40 02/14/15 [email or web address] Deleted by Reflex Group [facility] [place] 41 Note: Persistent reduction for 3 months [...] SUFAMETHOXAZOLE OR A FLUOROQUINOLINE 49 Performed at: RN - [facility] [address] [id number] Adult Probation Officer: Stephani Higgins MD, Phone: [phone] Note: Persistent reduction for 3 months [...] found at [email or web address]. 51 RUN DATE: 08/17/12 [facility] LAB LIVE PAGE 1 RUN TIME: [address] [place] [id number] Specimen Inquiry Name: ABIGAIL ROLLINS : [address]: Luis Moran MD Acct: [id number] Unit: [id number] AGE: 27 Location: [facility] Re08/15/12 SEX: F Status: DEP ER SPEC: [id number] EFFIE: 08/15/12-[address] [facility] [address]: Luis Moran MD REQ: [id number] RECD: 08/15/12 STATUS: ASHLEY RUEDA DR: May Dan MD _ SOURCE: URINE SPDC: ORDERED: Urine Culture Procedure Result Verified Site Urine Culture Final 08/17/12- 0900 ML Few Enterobacteriacae; possible contamination. END OF REPORT * ML=Testing performed at Main Lab DEPARTMENT OF PATHOLOGY, [address] [place] [address] Omari Kelsey M.D. Director [facility] Permit #[id number] URINE-CLEAN CATCH 53 NO GROWTH 54 [...] STREP Procedures Date Code Description Status 11/20/2009 77744 PFT Evaluation Completed Encounters Type Date Location Provider Dx Diagnosis Office Visit 01/12/2018 Main Office May Dan M.D. F41.1 Generalized anxiety 2:30p disorder Office Visit 12/23/2017 Main Office May Dan M.D. J20.9 Acute bronchitis, 3:30p unspecified Office Visit 12/13/2017 Main Office May Dan M.D. J01.90 Acute sinusitis, 3:30p unspecified F41.1 Generalized anxiety disorder Office Visit 10/20/2017 1:30p Main Office May Dan Z00.00 Encntr for general M.D. adult medical [...] disorder Office Visit 07/20/2017 1:45p Main Office Elizabeth Delacruz1.1 Generalized anxiety M.D. disorder G89.4 Chronic pain [...] disorder Office Visit 04/28/2017 11:00a Main Office Elizabeth Delacruz1.1 Generalized anxiety M.D. disorder G89.4 Chronic pain syndrome Office Visit 03/29/2017 2:15p Main Office Elizabeth Delacruz1.1 Generalized anxiety M.D. disorder Office Visit 02/24/2017 2:45p Main Office May Dan J09.x2 Flu due to ident M.D. novel [...] Office Visit 01/07/2016 1:45p Main Office May Dan F41.1 Generalized anxiety M.D. disorder Office Visit 12/10/2015 3:30p Main Office May Dan F41.1 Generalized anxiety M.D. disorder G43.109 Migraine with aura, not intractable, w/o status migrainosus Office Visit 11/12/2015 2:15p Main Office May Dan, N39.0 Urinary tract M.D. infection, site not specified F41.1 Generalized anxiety disorder G43.109 Migraine with aura, not intractable, w/o status migrainosus Office Visit 10/16/2015 2:45p Main Office May Dan, F41.1 Generalized anxiety M.D. disorder G43.109 Migraine with aura, not intractable, w/o status migrainosus Office Visit 09/12/2015 3:00p Main Office aMy Dan, J01.90 Acute sinusitis, M.D. unspecified Office Visit 08/15/2015 2:15p Main Office May Dan F41.1 Generalized anxiety M.D. disorder Office Visit 07/09/2015 2:00p Main Office May Dan, F41.1 Generalized anxiety M.D. disorder G43.109 Migraine with aura, not intractable, w/o status migrainosus Office Visit 02/11/2015 2:00p Main Office May Dan F41.1 Generalized anxiety M.D. disorder Office Visit 01/09/2015 11:15a Main Office May Dan F41.1 Generalized anxiety M.D. disorder Office Visit 12/11/2014 10:45a Main Office May Dan, 300.02 Anxiety Disorder M.D. Generalized 493.10 Asthma Intrinsic Unspecified Office Visit 10/17/2014 11:30a Main Office May Dan 300.02 Anxiety Disorder M.D. Generalized Office Visit 09/24/2014 1:30p Main Office May Dan 300.02 Anxiety Disorder M.D. Generalized Office Visit 09/06/2014 12:30p Main Office May Dan 300.02 Anxiety Disorder M.D. Generalized Office Visit 06/28/2014 9:45a Main Office May Dan 300.02 Anxiety Disorder M.D. Generalized Office Visit 05/30/2014 1:30p Main Office May Dan 300.02 Anxiety Disorder M.D. Generalized Office Visit 05/02/2014 11:30a Main Office May Dan 300.02 Anxiety Disorder M.D. Generalized Office Visit 04/03/2014 3:00p Main Office May Dan, 300.02 Anxiety Disorder M.D. Generalized Office Visit 03/05/2014 3:00p Main Office May Dan, 300.02 Anxiety Disorder M.D. Generalized Office Visit 02/21/2014 11:30a Main Office May Dan, 599.00 UTI / Urosepsis M.D. Infection Office Visit 02/05/2014 2:15p Main Office aMy Dan, 300.02 Anxiety Disorder M.D. Generalized Office [...] Office Visit 02/23/2012 2:00p Main Office May Dna, 465.8 Upper Respiratory M.D. Infections Acute Other Multiple Sites 487.1 Influenza W/ Other Respiratory Manifestations Office Visit 12/08/2011 2:30p Main Office May Dan M.D. 599.0 UTI Urinary Tract Infection Site Not Spec V72.31 Routine Loan Consultant Examination V70.0 Examination General Medical Routine AT [...] Office Visit 01/27/2011 2:30p Main Office May Dan 300.02 Anxiety Disorder M.D. Generalized 493.00 Asthma Extrinsic Unspecified 784.0 Headache 599.0 UTI Urinary Tract Infection Site Not Spec V15.82 History Personal Tobacco Use Office Visit 12/16/2010 1:30p Main Office May Dan, 493.00 Asthma Extrinsic M.D. Unspecified 784.0 Headache 599.0 UTI Urinary Tract Infection Site Not Spec 780.79 Malaise And Fatigue Other Office Visit 11/20/2009 1:45p Main Office May Dan 493.00 Asthma Extrinsic M.D. Unspecified V15.82 History Personal Tobacco Use 705.81 Dyshidrosis Office Visit 05/21/2009 2:15p Main Office May Dan M.D. 473.90 Sinusitis 493.00 Asthma Extrinsic Unspecified 784.0 Headache Office Visit 01/20/2008 12:00p Main Office Vandana Bray MD 460.00 Upper Respiratory Infection Office Visit 11/15/2007 3:30p Main Office May Dan V25.02 Contraceptive M.D. Measures Other Initiation V72.31 Routine Loan Consultant Examination V70.0 Examination General Medical Routine AT Health Care Facility Office Visit 09/27/2007 1:45p Main Office May Dan, 112.9 Candidiasis Unspec M.D. Site V25.02 Contraceptive Measures Other Initiation Office Visit 03/22/2007 10:45a Main Office May Dan 493.00 Asthma Extrinsic M.D. Unspecified V15.82 History Personal Tobacco Use V72.31 Routine Loan Consultant Examination Office Visit 06/16/2006 11:00a Main Office May Dan 473.90 Sinusitis M.D. Office Visit 05/11/2006 10:45a [...] Office Visit 07/23/2004 11:00a Main Office May Dan 493.00 Asthma Extrinsic M.D. Unspecified Office Visit 05/20/2004 2:30p Main Office May Dan, 473.90 Sinusitis M.DBahman Office Visit 01/24/2004 10:30a Main Office Quentin Dan, 675.24 Mastitis Nonpurulent Assoc W/ Cond Or Compl Plan of Treatment 02/07/2018 - May Dan M.D.F41.1 Generalized anxiety disorderNew Medication: Xanax 1 mg - 2 by mouth every 6 hours as ivxwuvQ05.4 Chronic pain syndrome
--- OUTSIDE RECORDS SUMMARY | 2018-02-17 08:09 | XMS REPORT | Continuity of Care Document ---
:1985 External Reference #:[id number] Author Name May Dan M.D. Address [address] [place] [address] Care Team Providers Name Role Phone May Dan MD Primary Care Physician Unavailable Payers Type Date Identification Numbers Payment Provider Subscriber Effective: Policy Number: [id number] [employer] Abigail Maravilla 2017 PayID: [id number] [address] [address] ALEJANDRINA Shelley [address] Expires: 2017 Policy Number: [id number] [employer] Abigail Maravilla Group Number: 17 [address] [address] PayID: [id number] ALEJANDRINA Shelley [address] Advance Directives Description No Information Available Problems [...] 1mg 240ta 2 by mouth F41.1 May 2018 bs every 6 Gauss, hours as M.D. needed Tramadol HCL 08/26/ Active Tablets 50mg 240ta 2 by mouth F41.1 May 2016 bs every 6 Gauss, hours as M.D. needed pain Ventolin HFA 06/10/ Active Aerosol 108(90Bas 108un inhale two May 2011 e) its puffs by Larryuss, mcg/Act mouth four M.D. times a day and as needed Albuterol 05/17/ Active Solution 0.083% 100un qid prn as May Inhalation Unit 2006 its Directed Larryuss, Dose M.D. Clonidine HCL / Active Tablets 0.1mg TK 1 T PO Unknown 0000 qid PRF Anxiety Amoxicillin 12/23/ Hx Tablets 875mg 14tab 1 by mouth J20.9 May 2018 - s twice a day Ni, 02/07/ M.D. 2017 Cheratussin ac 12/23/ Hx Syrup 100-10mg/ 118ml 5 ml every J20.9 May 2018 - 5ML 4 hours as Ni, 02/07/ needed M.D. 2018 Azithromycin 12/13/ Hx Tablets 250mg 6tabs 2 by mouth J20.9 May 2018 - today, 1 by Ni, 12/23/ mouth day 2 M.D. 2018 thru 5 Xanax 12/13/ Hx Tablets 1mg [...] May Phosphate 2017 - s twice daily Gauss, 07/22/ for next 10 M.D. 2018 days Azithromycin 02/24/ Hx Tablets 250mg 6tabs 2 by mouth J09.x2 May 2017 - today, 1 by Gauss, 03/29/ mouth day 2 M.D. 2017 thru 5 Work Note 02/24/ Hx Excused J09.x2 May 2016 - from work Gauss, 07/07/ until 03/01 M.D. 2017 Cipro 02/02/ Hx Tablets 250mg 14tab 1 [...] Tablets ER 2mg 120ta 1 tab by Elizabeth1.1 May 2016 - 24HR bs mouth four Gauss, 12/09/ times a day M.D. 2016 as needed Ketoconazole 08/26/ Hx Cream 2% [...] Gauss, 01/06/ a day M.D. 2015 Alprazolam 1025/ Hx Tablets 1mg 180ta 2 by mouth F41.1 May 2016 - bs three times Gauss, 12/08/ a day M.D. 2016 Cipro 11/11/ Hx Tablets 250mg 10tab 1 by mouth N39.0 May 2016 - s twice a day Gauss, 01/06/ M.D. 2016 Azithromycin 09/11/ Hx Tablets 250mg 6tabs 2 by mouth J01.90 May 2015, 1 by Gauss, 11/11/ mouth day 2 M.D. 2016 thru 5 Tramadol HCL 04/24/ Hx Tablets 50mg 120ta 1 by mouth F41.1 May 2015 - every 6 Gauss, 08/26/ hours as M.D. 2016 needed pain Alprazolam 09/24/ Hx Tablets 1mg 120ta 1 by mouth F41.1 May 2014 bs 4 times Gauss, 01/06/ daily as M.D. 2016 needed Alprazolam 09/06/ Hx Tablets 0.5mg 30tab 1 by mouth 300.02 May 2014 s before Larryuss, 09/24/ bedtime as M.D. 2014 neded Alprazolam 04/03/ Hx Tablets 1mg 120ta 1 by mouth 300.02 May 2014 - 4 times a Gauss, 09/06/ day M.D. 2014 Pyridium 02/21/ Hx Tablets 200mg 30tab 1 three 599.00 May 2013 - s times a day Larryuss, 09/06/ as needed M.D. 2014 bladder pain Azithromycin 12/06/ Hx Tablets 250mg 6tabs 2 by mouth 466.0 May 2013, 1 by Gauss, 09/06/ mouth day 2 M.D. 2014 thru 5 Azithromycin 08/17/ Hx Tablets 250mg 6tabs 2 po today, 460.00 May 2013 po day 2 Gauss, 10/17/ thru 5 M.D. 2013 Famotidine 08/14/ Hx Tablets 40mg 90tab 1 po qd 530.81 May 2013 Larryuss, 11/10/ M.D. 2016 Buspirone HCL 07/13/ Hx Tablets 15mg 180ta 1 po bid F41.1 May 2013 Larryuss, 11/10/ M.D. 2017 Ciprofloxacin 04/13/ Hx Tablets 500mg 20tab 1 by mouth 382.90 May HCL 2013 twice a day Ni, 09/06/ M.D. 2015 Cortisporin-TC 04/13/ Hx Suspension 3.3-3-10- 5ml 1 qtt ad 382.90 May 2013 - 0.5mg/ml qid Ni, 06/05/ M.D. 2013 Buspirone HCL 04/13/ Hx Tablets 7.5mg 90tab 1 po tid 300.02 May 2013 - s Ni, M.D. 2013 Amoxicillin/Cla 03/28/ Hx Tablets 500-125mg 14tab 1 po bid 382.90 May vulanate 2013 - s Ni, Potassium 04/13/ M.D. 2013 Diflucan 03/28/ Hx Tablets 150mg 3tabs 1 po qd 382.90 May 2013 - Ni, 06/05/ M.D. 2013 Alprazolam 03/01/ Hx Tablets 1mg 120ta 1 by mouth 300.02 May 2012 - bs 4 times a Ni, 04/03/ day M.D. 2014 SMZ-TMP DS 02/07/ Hx Tablets 800-160mg 14tab 1 po bid 599.0 May 2012 - s Ni, 02/27/ M.D. 2012 Azithromycin 12/07/ Hx Tablets 250mg 6tabs 2 po today, 466.0 May 2012 - po day 2 Ni, 01/09/ thru 5 M.D. 2012 Advair Diskus 12/07/ Hx Aerosol 250-50mcg 3unit 1 puff bid 493.00 May 2012 - /Dose s Ni, 04/28/ M.D. 2017 Robitussin With 12/07/ Hx 4Oz 1 tsp po q 466.0 May Codeine 2012 - 4 hours prn Ni, 01/09/ cough M.D. 2012 Alprazolam 10/25/ Hx Tablets 0.5mg 90tab 1 po tid 300.02 May 2012 - s prn Ni, 03/01/ M.D. 2012 Azithromycin 08/22/ Hx Tablets 250mg 6tabs 2 po today, 382.90 May 2012 po day 2 Ni, 10/05/ thru 5 M.D. 2012 Azithromycin 02/22/ Hx Tablets 250mg 6tabs 2 po today, 465.2011 - po day 2 Ni, 05/16/ thru 5 M.D. 2013 Robitussin With 02/22/ Hx Liquid 8Oz 1-2 465.8 May Codeine 2011 - teaspoon po Gauss, 05/16/ q 4-6 hrs M.D. 2012 for cough Work Note may return 465.2011 - to work Gauss, 05/16/ 02/29/2012 M.D. 2012 Ciprofloxacin 12/07/ Hx Tablets 500mg 14tab 1 po bid 599.0 May HCL 2011 - s Larryuss, 02/22/ M.D. 2011 Ciprofloxacin 04/13/ Hx Tablets 250mg 14tab 1 po bid 599.0 May HCL 2011 - s Gauss, 12/07/ M.D. 2011 Alprazolam 01/27/ Hx Tablets 0.25mg 90tab 1 po tid 300.02 May 2010 - prn Larryuss, 10/25/ M.D. 2012 Pyridium 12/16/ Hx Tablets 200mg 30tab 1 tid prn 599.0 May 2010 - bladder Larryuss, 01/27/ pain M.D. 2010 Ciprofloxacin 12/16/ Hx Tablets 250mg 30tab 1 po bid 599.0 May HCL 2010 - Gauss, 01/27/ M.D. 2010 Proair HFA 07/14/ Hx Aerosol 108(90Bas 3unit 2 puffs 4 May 2010 - e) mcg/ac s x daily Gauss, 06/10/ M.D. 2011 Chantix 11/20/ Hx Tablets 0.5mg 60tab 1 po bid V15.82 May 2009 - s Larryuss, 12/16/ M.D. 2010 Betamethasone 11/20/ Hx Cream 0.05% 60rm apply to 705.81 May Dipropionate 2009 - affected Gauss, 01/09/ area bid M.D. 2012 Tramadol HCL 08/05/ Hx Tablets 50mg 120ta 1 by mouth 346.00 May 2009 - bs every 6 Gauss, 09/06/ hours as M.D. 2015 needed pain Azithromycin 05/21/ Hx Tablets 250mg 5tabs 2 po today, 473.90 May 2009 - 1 po day 2 Larryuss, 11/20/ thru 5 M.D. 2009 Proair HFA 05/21/ Hx Aerosol 108(90Bas 1unit 2 puffs 4 473.90 May 2009 - e) mcg/ac s x daily Ni, 11/20/ M.D. 2009 Tramadol HCL 05/21/ Hx Tablets 50mg 100ta 1 po q 6 784.0 May 2010 - bs hours prn iN, 11/20/ pain M.D. 2009 Ventolin HFA 07/23/ Hx Aerosol 108mcg/Ac 2unit 2 puff qid 473.90 May 2009 - t s prn Ni, 05/21/ M.D. 2009 Proventil HFA 07/04/ Hx Aerosol 108mcg/Ac 3unit 2 puffs qid May 2009 - t s prn Ni, 07/23/ M.D. 2008 Zithromax Z-Khoa 01/19/ Hx Tablets 250mg 1Pak 1 po qd Vandana Borrero - MD Asa 2007 Zithromax 01/19/ Hx Tablets 250mg 6tabs 2 po day 1, Vandana 2007 - 1 po qd chito Bray MD 05/21/ days 2-5 2009 Metrogel-Vagina 11/22/ Hx [...] 2unit PO as V15.82 May Starter Pack 2007 - s Directed Ni, 09/26/ M.D. 2007 [...] 0.015mg/D 4unit 1 q week V25.02 May 2007 - ay;0.12mg s Ni, 05/21/ /D M.D. [...] 2005 - g;20mcg;1 ts A week Ni, M.DBahman 2006 Albuterol 01/22/ Hx Aerosol 90mcg/Dos 2unit 2 puff qid May Inhalation 2004 - e s and prn Ni, M.D. 2010 Ortho 01/19/ Hx Tablets 0.035mg;0 28tab One PO qd May Tri-Cyclen 2005 - .18mg;0.0 s Ni, M.DBahman 2004 Bupropion [...] CPT Code Status Date Vaccine Lot # [id number] Given 10/16/2004 Tetanus And Diptheria Toxiods [id number] 09303 Given 10/16/2004 Tetanus And Diptheria Toxiods Vital [...] Result H/L Range Note Escherichia Coli 07/05/2017 [facility] Nitrofurantoin <=[address] [place], [place] [id number] [phone] Trimethoprim/Sulfamethoxazole <=20 Ampicillin 8 Cefazolin <=4 Ampicillin/Sulbactam <=2 Ciprofloxacin <=0.25 Piperacillin/Tazobactam <=4 Ceftazidime <=1 Ceftriaxone <=1 Cefepime <=1 Levofloxacin <=0.12 Imipenem <=0.25 Gentamicin <=1 Tobramycin <=1 Urine Culture 07/05/2017 [facility] Urine Culture ESCHERICHIA COLI [address] [place], [place] [id number] [phone] Quantity > 100,000 CFU/mL 3 Urine Culture URETHRAL BRANDON Quantity 10,000 - 50,000 <SEE NOTE> 4 Culture If 07/05/2017 [facility] Culture If CULTURE TO 5 Indicated Comment [address] Indicated [place]O <[place] [address] Comment NOTE> [phone] Source: URINE, CLEAN CAT <SEE NOTE> 6 Comprehensive 07/05/2017 [facility] Glucose 103 mg/ dL 74-106 Metabolic Panel [address] [place], [place] [address] [phone] BUN 16 mg/dL 7-18 Creatinine 0.7 mg/dL [...] Phosphatase 54 U/L 45-117 Laboratory test 07/05/2017 [facility] Thyroid Stim 0.65 uIU/mL 0.30-4.[address] Hormone [place], [place] [id number] [phone] CBS W/Automated 07/05/2017 [facility] White Blood 11.2 K/uL High 3.1-10.[address] Count [place], [place] [id number] [phone] Red Blood Count 4.70 M/uL 3.90-5.40 Hemoglobin [...] 40.4-72.8 Lymph % 19.9 % Low 20.0-42.0 Polk % 5.6 % 4.3-13.2 Eo% 0.8 % 0.0-6.6 Bas% 0.2 % 0.0-1.1 Neut# 8.21 K/uL High 1.8-7.0 Lymph # 2.22 K/uL 1.0-4.0 Polk # 0.62 K/uL 0.3-0.9 Eos # 0.09 K/uL 0.0-0.5 Baso # 0.02 K/uL 0.0-0.1 Urinalysis With 07/05/2017 [facility] Urine Color YELLOW Yellow Microscopic [address] [place] [address] [phone] Urine Clarity CLOUDY Clear Urine Glucose - Dipstick NEGATIVE mg/dL Negative Urine Bilirubin - Dipstick NEGATIVE Negative Urine Ketone TRACE mg/dL High Negative Urine Specific [place] 1.025 1.010-1.030 Urine Blood LARGE Negative Urine [...] CAT <SEE NOTE> 8 Urine HCG 07/05/2017 [facility] Urine HCG NEGATIVE Negative 9 (Qualitative) [address] (Qualitative) [place] [address] [phone] Source: URINE, CLEAN CAT <SEE NOTE> 10 Differential-WBC 07/05/2017 [facility] Total Cells 100 #CELLS Confirm [address] [place] [address] [phone] Neutrophils% 76 % High 33-73 Lymph% 13 % Low 20-42 Atypical Lymph% 5 % 0-7 Monocyte% 6 % 0-10 Platelet Estimate SLIGHT INCREASE RBC Morphology NORMAL Slide Review 07/05/2017 [facility] Slide Review DIFF ORDERED [address] [place] [address] [phone] Culture,Urine,V 02/02/2017 [facility] URINE-CLEAN CATC [address] <SEE NOTE> [place] [address] [phone] Final Report SEE NOTE 12 CBC 07/10/2016 [facility] White Blood Count 5.6 K/uL 3.1-10.[address] [place] [address] [phone] Red Blood Count 3.03 M/uL Low 3.90-5.40 Hemoglobin 9.6 gm/dL Low 11.6-15.8 Hematocrit 28.8 % Low 36.0-46.1 Mean Cell Volume 95.0 fl 80.9-99.0 Mean Corpuscular HGB 31.7 pg 25.9-32.7 Mean Corpuscular HGB Conc 33.3 g/dL 30.8-34.3 Platelet Count 239 K/uL 150-400 Red Cell Distri Width %CV 12.3 % 11.7-14.4 Mean Platelet Volume 10.2 fL 8.9-12.4 Comprehensive 07/10/2016 [facility] Glucose 135 mg/ dL High 74-106 Metabolic Panel [address] [place] [address] [phone] BUN 4 mg/dL Low 7-18 Creatinine 0.5 [...] Phosphatase 67 U/L 45-117 Laboratory test 07/10/2016 [facility] Magnesium 2.4 mg/dL 1.8-2.[address] [place] [address] [phone] CBS W/Automated 07/09/2016 [facility] White Blood 6.8 K/uL 3.1-10.[address] [place] [address] [phone] Red Blood Count 3.33 M/uL Low 3.90-5.40 [...] % 40.4-72.8 Lymph % 23.3 % 20.0-42.0 Polk % 10.0 % 4.3-13.2 Eo% 1.9 % 0.0-6.6 Bas% 0.1 % 0.0-1.1 Neut# 4.42 K/uL 1.8-7.0 Lymph # 1.59 K/uL 1.0-4.0 Polk # 0.68 K/uL 0.3-0.9 Eos # 0.13 K/uL 0.0-0.5 Baso # 0.01 K/uL 0.0-0.1 Basic Metabolic 07/09/2016 [facility] Glucose 110 mg/ dL High 74-[address] [place], [place] [id number] [phone] BUN 8 mg/dL 7-18 Creatinine 0.7 mg/dL 0.6-1.3 Glom Filtration Rate, Estimate >60 mL/min >60 If >60 mL/min >60 15 BUN/Creat 11.4 ratio Sodium 140 mmol/L 136-145 Potassium 3.6 mmol/L 3.5-5.1 Chloride 111 mmol/L High 98-107 Carbon Dioxide 23 mmol/L 21-32 Anion Gap 6 mEq/L Low 8-16 Calcium 7.1 mg/dL Low 8.5-10.1 Laboratory test 07/09/2016 [facility] Magnesium 1.8 mg/dL 1.8-2.[address] [place] [address] [phone] Blood Culture 07/08/2016 [facility] Blood Culture NO GROWTH: [address] Aerobic FINAL <SEE [place] [address] NOTE> [phone] Blood Culture Anaerobic NO GROWTH: FINAL <SEE NOTE> 17 Urine Culture 07/08/2016 [facility] Urine Culture MIXED URETHRAL F [address] <SEE NOTE> [place] [address] [phone] Quantity > 100,000 CFU/mL 19 Comprehensive 07/08/2016 [facility] Glucose 112 mg/ dL High 74-106 Metabolic Panel [address] [place], [place] [address] [phone] BUN 10 mg/dL 7-18 Creatinine 0.8 mg/dL [...] Phosphatase 80 U/L 45-117 Laboratory test 07/08/2016 [facility] Lactic Acid 0.7 mmol/L 0.4-1.9 [address] [place] [id number] [phone] Blood Culture 07/08/2016 [facility] Blood NO GROWTH: 22, [address] Culture FINAL <[place] [address] Aerobic NOTE> [phone] Blood Culture Anaerobic NO GROWTH: FINAL <SEE NOTE> 24 Laboratory test 07/07/2016 [facility] Urine SEE RESULT 25, [address] Culture BELOW [place], [place] [address] [phone] Urinalysis With 07/07/2016 [facility] Urine Color YELLOW Yellow [address] [place] [address] [phone] Urine Clarity CLEAR Clear Urine Glucose - Dipstick NEGATIVE mg/dL Negative Urine Bilirubin - Dipstick NEGATIVE Negative Urine Ketone NEGATIVE mg/dL Negative Urine Specific [place] 1.010 1.010-1.030 Urine Blood SMALL Negative Urine [...] CAT <SEE NOTE> 28 Urine HCG 04/10/2016 [facility] Urine HCG NEGATIVE Negative 29, (Qualitative) [address] (Qualitative) 30 [place], [place] [id number] [phone] Source: URINE, CLEAN CAT <SEE NOTE> 31 Urinalysis With 04/10/2016 [facility] Urine Color ORANGE Yellow Microscopic [address] [place], [place] [address] [phone] Urine Clarity SL CLOUDY Clear Urine Glucose - Dipstick 250 mg/dL High Negative Urine Bilirubin - Dipstick SMALL Negative Urine Ketone TRACE mg/dL High Negative Urine Specific [place] 1.010 1.010-1.030 Urine Blood MODERATE Negative Urine [...] CAT <SEE NOTE> 33 Culture If 04/10/2016 [facility] Culture If CULTURE TO [address] Indicated FOLLO <SEE Comment [place] [id number] Comment NOTE> [phone] Source: URINE, CLEAN CAT <SEE NOTE> 35 Urine Culture 04/10/2016 [facility] Urine Culture ESCHERICHIA COLI [address] [place] [address] [phone] Quantity > 100,000 CFU/mL 37 Urine Culture URETHRAL BRANDON Quantity 50,000 - 100,000 <SEE NOTE> 38 Ast-GN67 04/10/2016 [facility] Nitrofurantoin <=[address] [place], [place] [address] [phone] Trimethoprim/Sulfamethoxazole <=20 Ampicillin 4 Cefazolin <=4 Ampicillin/Sulbactam 4 Ciprofloxacin <=0.25 Piperacillin/Tazobactam <=4 Ceftazidime <=1 Ceftriaxone <=1 Cefepime <=1 Levofloxacin <=0.12 Imipenem <=0.25 Gentamicin <=1 Tobramycin <=1 Hemoglobin/Hematocrit 03/01/2015 [facility] Hemoglobin 10.5 Low 11.6-15.[address] gm/dL [place], [place] [address] [phone] Hematocrit 30.6 % Low 36.0-46.1 Type And Screen 02/28/2015 [facility] Patient Blood Type A POS [address] [place], [place] [address] [phone] Antibody Screen Negative Negative CBC 02/28/2015 [facility] White Blood Count 14.5 K/ uL High 3.1-10.[address] [place] [address] [phone] Red Blood Count 4.20 M/uL 3.90-5.40 Hemoglobin 12.4 gm/dL 11.6-15.8 Hematocrit 36.2 % 36.0-46.1 Mean Cell Volume 86.2 fl 80.9-99.0 Mean Corpuscular HGB 29.5 pg 25.9-32.7 Mean Corpuscular HGB Conc 34.3 g/dL 30.8-34.3 Platelet Count 355 K/uL 155-360 Red Cell Distri Width %CV 13.8 % 11.7-14.4 Mean Platelet Volume 10.1 fL 8.9-12.4 Laboratory test 02/28/2015 [facility] Treponema Nonreactive [address] [place] [address] [place] [phone] Laboratory test 02/14/2015 [facility] Ua RFX Micro See Note [address] + Culture II [place], [place] [address] [phone] Comprehensive 02/14/2015 [facility] Glucose 92 mg/dL 74-1 Metabolic Panel [address] [place], [place] [address] [phone] BUN 12 mg/dL 7-18 Creatinine 0.8 mg/dL [...] Alkaline Phosphatase 89 U/L 45-117 CBC 02/14/2015 [facility] White Blood Count 15.7 K/ uL High 3.1-10.[address] [place] [address] [phone] Red Blood Count 3.97 M/uL 3.90-5.40 Hemoglobin 11.7 gm/dL 11.6-15.8 Hematocrit 34.2 % Low 36.0-46.1 Mean Cell Volume 86.1 fl 80.9-99.0 Mean Corpuscular HGB 29.5 pg 25.9-32.7 Mean Corpuscular HGB Conc 34.2 g/dL 30.8-34.3 Platelet Count 330 K/uL 155-360 Red Cell Distri Width %CV 13.3 % 11.7-14.4 Mean Platelet Volume 9.4 fL 8.9-12.4 Urinalysis With 02/14/2015 [facility] Urine Color YELLOW Yellow Microscopic [address] [place] [address] [phone] Urine Clarity SL CLOUDY Clear Urine Glucose - Dipstick NEGATIVE mg/dL Negative Urine Bilirubin - Dipstick NEGATIVE Negative Urine Ketone NEGATIVE mg/dL Negative Urine Specific [place] 1.010 1.010-1.030 Urine Blood LARGE High Negative [...] Amorph Sediment MODERATE Negative Comprehensive Metabolic 09/14/2014 [facility] Glucose 82 mg/dL 74-[address] [place] [address] [phone] BUN 9 mg/dL 7-18 Creatinine 0.5 mg/dL [...] 39 U/L Low 45-117 CBC W/Automated 09/14/2014 [facility] White Blood 10.5 K/uL 3.1-10.[address] Count [place], [place] [address] [phone] Red Blood Count 4.17 M/uL 3.90-5.40 Hemoglobin [...] High 1.0-7.0 Lymph # 2.02 K/uL 1.8-7.0 Polk # 0.78 K/uL 0.3-0.9 Eos # 0.05 K/uL 0.0-0.5 Baso # 0.03 K/uL 0.0-0.1 Differential-WBC 09/14/2014 [facility] Total Cells 100 #CELLS Confirm [address] Counted [place], [place] [address] [phone] Myelocyte% 1 % High -0 Neutrophils% 76 % High 33-73 Lymph% 17 % 17-56 Monocyte% 3 % 0-10 Eosinophil% 3 % 0-5 Platelet Estimate NORMAL Toxic Granulation 0-1+ Urine Screen 08/20/2014 [facility] Urine Color YELLOW Yellow [address] [place], [place] [address] [phone] Urine Clarity CLEAR Clear Urine Glucose - Dipstick NEGATIVE mg/dL Negative Urine Bilirubin - Dipstick NEGATIVE Negative Urine Ketone NEGATIVE mg/dL Negative Urine Specific [place] 1.015 1.010-1.030 Urine Blood TRACE Negative Urine PH 7.0 6.5-7.5 Urine Protein - Dipstick NEGATIVE mg/dL Negative Urine Urobilinogen - Dipstick 0.2 E.U./dL 0.2-1.0 Urine Nitrite - Dipstick NEGATIVE Negative Urine Leuk Esterase NEGATIVE Negative Culture,Urine,Voided 02/21/2014 [facility] URINE-CLEAN CATC [address] <SEE NOTE> [place] [address] [phone] Organism #1 SEE NOTE 46 [employer] GN24 02/21/2014 [facility] Amoxicillin/Clavulanate S (4) Susceptibility Org[address] [place] [address] [phone] Ampicillin S (4) Ampicillin/Sulbact S (4) Cefazolin S (<=4) Cefepime S (<=1) Ceftazidime S (<=1) Ceftriaxone S (<=1) Ciprofloxacin S (<=0.25) Ertapenem S (<=0.5) Gentamicin S (<=1) Imipenem S (<=0.25) Levofloxacin S (<=0.12) Nitrofurantoin S (<=16) Piperacillin/Tazobactam S (<=4) Tobramycin S (<=1) Trimethoprim/Sulfa S (<=20) 47 Culture,Urine,Voided 02/07/2013 [facility] URINE-CC [address] [place] [address] [phone] Organism #1 (SEE NOTE) 48 CBS W/Automated 12/06/2012 [facility] White Blood 7.5 K/uL 3.1-10.[address] [place] [address] [phone] Red Blood Count 4.38 M/uL 3.90-5.40 Hemoglobin [...] % 40.4-72.8 Lymph % 32.0 % 17.0-46.1 Polk % 7.6 % 4.3-13.2 Eo% 0.9 % 0.0-6.6 Bas% 0.3 % 0.0-1.1 Neut# 4.41 K/uL 1.0-7.0 Lymph # 2.39 K/uL 0.8-3.4 Polk # 0.57 K/uL 0.3-0.9 Eos # 0.07 K/uL 0.0-0.5 Baso # 0.02 K/uL 0.0-0.1 TSH+Free T4 12/06/2012 [facility] Thyroid Stim 0.99 uIU/mL 0.49-4.67 ([place] & [address] Hormone [facility] [place], [place] [id number] [phone] Free T4 1.00 ng/dL 0.71-1.85 Laboratory test 12/06/2012 [facility] Direct LDL 118 mg/dL High 0-99 [address] Cholesterol [place], [place] 138[address]99 [phone] Basic Metabolic 12/06/2012 [facility] Glucose 100 mg/ dL 76-[address] [place], [place] [address] [phone] BUN 11 mg/dL 5-23 Creatinine 0.7 mg/dL 0.5-1.4 Glom Filtration Rate, Estimate >60 mL/min >60 If >60 mL/min >60 50 BUN/Creat 15.7 ratio Sodium 139 mmol/L 136-145 Potassium 4.0 mmol/L 3.5-5.1 Chloride 106 mmol/L 98-107 Carbon Dioxide 26 mEq/L 18-29 Anion Gap 11 mEq/L 8-16 Calcium 9.4 mg/dL 8.5-10.1 Urine Culture And 08/15/2012 [facility] Urine Culture (SEE NOTE) [address] [place] [address] [phone] Culture,Urine,Voided 12/08/2011 [facility] URINE-CLEAN [address] CATC <[place] [address] NOTE> [phone] Final Report (SEE NOTE) 53 Culture,Urine,Voided 04/13/2011 [facility] URINE-CC [address] [place] [address] [phone] Final Report (SEE NOTE) 54 Laboratory test 11/13/2010 [facility] Urine Screen See Note [address] [place], [place] [address] [phone] Urinalysis With 11/13/2010 [facility] Urine Color YELLOW Yellow Microscopic [address] [place] [address] [phone] Urine Clarity CLEAR Clear Urine Glucose - Dipstick NEGATIVE mg/dL Negative Urine Bilirubin - Dipstick NEGATIVE Negative Urine Ketone NEGATIVE mg/dL Negative Urine Specific [place] 1.015 1.010-1.030 Urine Blood TRACE Negative Urine [...] Urine Mucus SMALL NONESEEN Laboratory test 11/13/2010 [facility] Urine HCG NEGATIVE Negative [address] (Qualitative) [place], [place] [address] [phone] Laboratory test 10/25/2010 [facility] Throat Strep See Note [address] Screen [place], [place] [address] [phone] Laboratory test 08/04/2010 [facility] Urine HCG NEGATIVE Negative [address] (Qualitative) [place], [place] [address] [phone] Urinalysis With 08/04/2010 [facility] Urine Color YELLOW Yellow Microscopic [address] [facility] [place] [address] [phone] Urine Clarity CLOUDY Clear Urine Glucose - Dipstick NEGATIVE mg/dL Negative Urine Bilirubin - Dipstick NEGATIVE Negative Urine Ketone NEGATIVE mg/dL Negative Urine Specific [place] 1.020 1.010-1.030 Urine Blood NEGATIVE Negative Urine [...] Amorph Sediment SMALL Negative Laboratory test 08/04/2010 [facility] Urine Screen See Note 60 finding [address] [facility] [place] [address] [phone] Laboratory test 08/04/2010 [facility] Urine Culture See Note 61 finding [address] [facility] [place] [address] [phone] Basic Metabolic 11/14/2009 [facility] Glucose 91 mg/ dL 76-115 Panel [address] [facility] [place] [address] [phone] BUN 16 mg/dL 5-23 Creatinine 0.7 mg/dL 0.5-1.4 Glom Filtration Rate, Estimate >60 mL/min >60 If >60 mL/min >60 62 BUN/Creat 22.8 Sodium 141 mEq/L 136-145 Potassium 3.7 mEq/L 3.5-5.1 Chloride 105 mEq/L 98-107 Carbon Dioxide 26 mEq/L 21-32 Anion Gap 14 mEq/L 8-16 Calcium 8.9 mg/dL 8.5-10.1 CBC 11/14/2009 [facility] White Blood Count 6.5 K/uL 3.1-10.[address] [place] [address] [phone] Red Blood Count 4.28 M/uL 3.90-5.40 Hemoglobin 13.2 gm/dL 11.6-15.8 Hematocrit 38.6 % 36.0-46.1 Mean Cell Volume 90.2 fl 80.9-99.0 Mean Corpuscular HGB 30.8 pg 25.9-32.7 Mean Corpuscular HGB Conc 34.2 g/dL 30.8-34.3 Platelet Count 347 K/uL 155-360 Red Cell Distri Width %CV 12.2 % 11.7-14.4 Mean Platelet Volume 9.8 fL 8.9-12.4 Laboratory test 11/09/2007 [facility] Glucose 94 mg/ dL 76-[address] [place], [place] [id number] [phone] CBC W/Automated 11/09/2007 [facility] White Blood 7.6 K/uL 3.1-10.[address] Count [place], [place] [id number] [phone] Red Blood Count 4.48 M/uL 3.90-5.40 Hemoglobin 13.7 gm/dL 11.6-15.8 Hematocrit 41.1 % 36.0-46.1 Mean Cell Volume 91.7 fl 80.9-99.0 Mean Corpuscular HGB 30.6 pg 25.9-32.7 Mean Corpuscular HGB Conc 33.3 g/dL 30.8-34.3 Platelet Count 349 K/uL 155-360 Red Cell Distri Width %CV 12.8 % 11.7-14.4 Mean Platelet Volume 9.2 fL 8.9-12.4 Neut% 56.3 % 40.4-72.8 Lymph % 32.7 % 17.0-46.1 Polk % 8.3 % 4.3-13.2 Eo% 2.2 % 0.0-6.6 Bas% 0.5 % 0.0-1.1 Neut# 4.3 K/uL 1.0-7.0 Lymph # 2.5 K/uL 0.8-3.4 Polk # 0.6 K/uL 0.3-0.9 Eos # 0.2 K/uL 0.0-0.5 Baso # 0.0 K/uL 0.0-0.1 Red Cell Distri Width SD 42 fl 3-47 Throat-Beta Strept 07/10/2005 [facility] Throat-Beta Strep [facility] [address] [facility] [place] [address] [phone] POSS UTI 2 ESCHERICHIA COLI 3 [...] REPORT 24 NO GROWTH: FINAL REPORT 25 [id number] SEE RESULT BELOW Name: ABIGAIL MARAVILLA : [address]: Srini Alberto MD Acct: [id number] Unit: [id number] AGE: 31 Location: [facility] Re07/07/16 SEX: F Status: DEP ER SPEC: [id number] EFFIE: 07/07/16-[address] [facility] [address]: Srini Alberto MD REQ: [id number] RECD: 07/07/16733 STATUS: ASHLEY RUEDA DR: [facility] May Dan MD _ SOURCE: URINE SPDESC: ORDERED: Urine Culture COMMENTS: [id number] Procedure Result Reported Site Urine Culture Final 07/09/16- 0841 ML Organism 1 ESCHERICHIA COLI [place] Count >100,000 (Many) CFU/ML 1. ESCHERICHIA COLI [...] antibiotic reporting. * ML - MAIN LAB ([facility]) . END OF REPORT * ML=Testing performed at Main Lab DEPARTMENT OF PATHOLOGY, [address] [place] [address] Omari Kelsey M.D. Director [facility] # [id number] 27 UTI, RIGHT SIDE BACK PAIN 28 [...] 40 02/14/15 LAB.[email or web address] Deleted by [employer] [facility] 41 Note: Persistent reduction for 3 months [...] FLUOROQUINOLINE 49 Performed at: RN - [facility] [address] [id number] Tank Washer: Stephani Higgins MD, Phone: [phone] Note: Persistent reduction for 3 months [...] found at [email or web address]. 51 RUN DATE: 08/17/12 [facility] LAB LIVE PAGE 1 RUN TIME: [address] [place] [id number] Specimen Inquiry Name: ABIGAIL ROLLINS : [address]: Luis Moran MD Acct: [id number] Unit: [id number] AGE: 27 Location: [facility] Re08/15/12 SEX: F Status: DEP ER SPEC: [id number] EFFIE: 08/15/12-[address] [facility] [address]: Luis Moran MD REQ: [id number] RECD: 08/15/12 STATUS: ASHLEY [facility] DR: May Dan MD _ SOURCE: URINE [facility]: ORDERED: Urine Culture Procedure Result Verified Site Urine Culture Final 08/17/12- 0900 ML Few Enterobacteriacae; possible contamination. END OF REPORT * ML=Testing performed at Main Lab DEPARTMENT OF PATHOLOGY, [address] [place] [address] Omari Kelsey M.D. Director [facility] Permit #[id number] 52 URINE-CLEAN CATCH 53 NO GROWTH 54 [...] STREP Procedures Date Code Description Status 11/20/2009 79140 PFT Evaluation Completed Encounters Type Date Location [...] Office May Dan Z00.00 Encntr for general M.DBahman adult medical exam w/o abnormal findings Office [...] syndrome Office Visit 05/19/2017 10:45a Main Office Elizabeth Delacruz1.1 Generalized anxiety M.D. disorder Office Visit 04/28/2017 11:00a Main Office Elizabeth Delacruz1.1 Generalized anxiety M.D. disorder G89.4 Chronic pain syndrome Office Visit 03/29/2017 2:15p Main Office May Gauss, F41.1 Generalized anxiety [...] Office Visit 05/25/2016 2:15p Main Office May Dan G43.109 Migraine with aura, M.D. not intractable, [...] Office Visit 07/09/2015 2:00p Main Office May Dan F41.1 Generalized [...] Office Visit 06/05/2013 1:30p Main Office May Dan 300.02 Anxiety Disorder M.D. Generalized Office Visit 05/04/2013 10:30a Main Office May Dan 300.02 Anxiety Disorder M.D. Generalized Office Visit 04/13/2013 11:45a Main Office May Dan, 382.90 Otitis Media M.D. 300.02 Anxiety Disorder Generalized Office Visit 03/28/2013 11:50a Main Office May Dan, 382.90 Otitis Media M.D. Office Visit 03/01/2013 11:00a Main Office May Dan, 300.02 Anxiety Disorder [...] Office Visit 10/25/2012 1:45p Main Office May Dan, 300.02 Anxiety Disorder [...] Tract Infection Site Not Spec V72.31 Routine Data Collection Associate Examination V70.0 Examination General Medical Routine AT [...] Contraceptive M.D. Measures Other Initiation V72.31 Routine Data Collection Associate Examination V70.0 Examination General Medical Routine AT Health Care Facility Office Visit 09/27/2007 1:45p Main Office May Dan, 112.9 Candidiasis Unspec M.D. Site V25.02 Contraceptive Measures Other Initiation Office Visit 03/22/2007 10:45a Main Office May Dan, 493.00 Asthma Extrinsic M.D. Unspecified V15.82 History Personal Tobacco Use V72.31 Routine Data Collection Associate Examination Office Visit 06/16/2006 11:00a Main Office [...] 2 by mouth every 6 hours as utrhejC49.4 Chronic pain syndrome
[2018-02-17 08:28] VITALS: BP 108/80
--- NOTE | 2018-02-17 08:54 | UC ---
Respiratory Complaint HPI - HPI Summary HPI Summary: The patient is a 32-year-old female with a history of asthma who presents here with an 8 week history of cough she is currently on her second course of amoxicillin for this. Recently she has felt feverish. He states it doesn't feel like her asthma has been acting up. She denies any nausea or vomiting. She denies any chest pain. She denies any shortness of breath. - History of Current Complaint Chief Complaint: UCRespiratory Stated Complaint: COUGH/FEVER Time Seen by Provider: 02/17/18 08:35 Hx Obtained From: Patient Hx Last Menstrual Period: n/a Onset/Duration: Gradual Onset, Lasting Weeks Timing: Constant Severity Currently: Moderate Pain Intensity: 3 Pain Scale Used: 0-10 Numeric Character: Cough: Nonproductive Aggravating Factors: Nothing Alleviating Factors: Nothing Associated Signs And Symptoms: Positive: Fever - Allergies/Home Medications Allergies/Adverse Reactions: Allergies Allergy/AdvReac Type Severity Reaction Status Date / Time environmental Allergy Congestion Uncoded 02/17/18 08:28 Home Medications: Home Medications Acetaminophen TAB* [Tylenol TAB*] 650 mg PO Q4H PRN 02/17/18 [History Confirmed 02/17/18] Amoxicillin PO (*) [Amoxicillin 875 MG (*)] 875 mg PO BID 02/17/18 [History Confirmed 02/17/18] PMH/Surg Hx/FS Hx/Imm Hx Previously Healthy: Yes - Surgical History Surgical History: Yes Surgery Procedure, Year, and Place: ureter stents. - Family History Known Family History: Positive: None, Hypertension, Respiratory Disease Negative: Diabetes - Social History Alcohol Use: None Substance Use Type: None Smoking Status (MU): Current Some Day Smoker Type: Cigarettes Amount Used/How Often: 5 per day Review of Systems All Other Systems Reviewed And Are Negative: Yes Constitutional: Positive: Negative Skin: Positive: Negative Eyes: Positive: Negative ENT: Positive: Negative Respiratory: Positive: Cough Cardiovascular: Positive: Negative Gastrointestinal: Positive: Negative Genitourinary: Positive: Negative Motor: Positive: Negative Neurovascular: Positive: Negative Musculoskeletal: Positive: Negative Neurological: Positive: Negative Psychological: Positive: Negative Physical Exam Triage Information Reviewed: Yes Appearance: Well-Appearing, No Pain Distress, Well-Nourished, Thin Vital Signs: Initial Vital Signs Temp 99.2 F 12/06/18 08:18 Pulse 116 02/17/18 08:18 Resp 20 02/17/18 08:18 BP 108/80 02/17/18 08:18 Pulse Ox 100 02/17/18 08:18 Vital Signs Reviewed: Yes Eyes: Positive: Conjunctiva Clear ENT: Positive: Hearing grossly normal. Negative: Nasal congestion, Nasal drainage, Trismus, Muffled voice, Hoarse voice Neck: Positive: Supple, Nontender, No Lymphadenopathy Respiratory: Positive: No respiratory distress, No accessory muscle use, Wheezing Cardiovascular: Positive: RRR, No Murmur, Tachycardia Musculoskeletal: Positive: ROM Intact, No Edema Neurological: Positive: Alert Psychological Exam: Normal Skin Exam: Normal UC Diagnostic Evaluation - Laboratory O2 Sat by Pulse Oximetry: 100 - normal/not hypoxic - Radiology Radiology Interpretation Completed By: Radiologist Summary of Radiographic Findings: NAD Re-Evaluation - Re-Evaluation First Eval Re-Evaluation Time: 09:25 Change: Improved - minimal change...peak flow post neb 250 Respiratory Course/Dx - Differential Dx/Diagnosis Provider Diagnosis: Bronchitis, Bronchospasm with bronchitis, acute Discharge - Sign-Out/Discharge Documenting (check all that apply): Patient Departure All imaging exams completed and their final reports reviewed: Yes - Discharge Plan Condition: Stable Disposition: HOME Prescriptions: predniSONE [Deltasone 20 MG TAB] 40 mg PO DAILY #10 tab Patient Education Materials: How to Use a Peak Flow Meter (ED), Acute Bronchitis (ED) Forms: *Work Release Referrals: May Dan MD [Primary Care Provider] - 1 Week Additional Instructions: recheck for new or worsening symptoms use your inhaler 2 puffs 4x day for 7 days you had a dose of prednisone today continue amox you may also take an expectorant (plain robitussin or mucinex) - Billing Disposition and Condition Condition: STABLE Disposition: Home
[2018-02-17] MEDS: Ipratropium 0.5MG/2.5ML NEB* 0.5 MG/2.5 ML NEB.SOLN INH ONE (09:04)
[2018-02-17] MEDS: Albuterol 2.5 MG/3 ML NEB.SOL* (0.083%) INH ONE (09:04)
[2018-02-17] MEDS: predniSONE TAB* 20 MG PO ONE (09:35)
== END 2018-02-17 09:41 | disposition home or self-care (01) ==
LOC: UCCORT 07:57
DX: J45.909 Unspecified asthma, uncomplicated (principal); F17.210 Nicotine dependence, cigarettes, uncomplicated; J20.9 Acute bronchitis, unspecified
CPT/HCPCS: 71046; 99213; G0463; J7512